=== PATIENT | female | born 1950 | race Caucasian/White ===

== ENCOUNTER 2023-06-27 15:46 | Inpatient (IN) | payer OTHER, MEDICAID, SELFPAY ==
[2023-06-26] VITALS (13 sets, daily range): BP systolic 133–182; BP diastolic 72–104; BMI 20.1; BMI 22.7
[2023-06-26 12:51] LABS: % Basophils 0.7 % (0-2); % Eosinophils 4.6 % (0-6); % Immature Granulocytes 0.7 % (0-0.5); % Lymphocytes 21.7 % (20.5-51.1); % Monocytes 10.7 % (1.7-9.3); % Neutrophils 61.6 % (42.2-75.2); Absolute Basophils 0.1 10^3/uL (0-0.2); Absolute Eosinophils 0.3 10^3/uL (0-0.7); Absolute Immature Granulocytes 0.1 10^3/uL (0-0.05); Absolute Lymphocytes 1.5 10^3/uL (1.2-3.4); Absolute Monocytes 0.7 10^3/uL (0.1-0.6); Absolute Neutrophils 4.1 10^3/uL (1.4-6.5); Hematocrit 45.4 % (37.0-47.0); Mean Corpuscular Hgb 30.3 pg (27.0-31.0); Mean Corpuscular Volume 91.7 fL (81.0-99.0); Nucleated Red Blood Cells % 0 %; Platelet Count 261 10^3/uL (130-400); Red Blood Cell Count 4.95 10^6/uL (4.20-5.40); Red Cell Dist. Width 14.6 % (11.5-14.5); White Blood Cell Count 6.7 10^3/uL (4.8-10.8)
[2023-06-26 13:02] LABS: ALT (SGPT) 21 U/L (0-35); AST (SGOT) 32 U/L (14-36); Albumin 4.2 g/dl (3.5-5.0); Alkaline Phosphatase 99 U/L (38-126); Blood Urea Nitrogen 11 mg/dl (7-17); Calcium 9.6 mg/dl (8.4-10.2); Carbon Dioxide 28 mmol/L (22-30); Chloride 104 mmol/L (98-107); Glucose 109 mg/dl (70-99); Potassium 3.8 mmol/L (3.5-5.1); Sodium 141 mmol/L (135-145); Total Bilirubin 0.9 mg/dl (0.2-1.3); eGFR > 60.00
[2023-06-26 13:03] LABS: INR 0.89; PT 12.3 Sec (11.4-14.6)
[2023-06-26 13:13] LABS: APTT 21.7 Sec (23.4-35.0)
--- NOTE | 2023-06-26 14:25 | ED.CVA ---
History of Present Illness
General
Chief Complaint: CVA/TIA Symptoms
Source: patient and family
Time Seen by Provider: 06/26/23 14:09
Onset of Stroke Symptoms
Onset of symptoms known: No
Time pt last seen normal is known: Yes
Date last time pt seen normal: 06/22/23
Travel History
Have you had any contact with someone who has COVID-19?: No
Do you have any symptoms of coronavirus? Fever > 100 degrees, chills, cough, shortness of breath, sore throat, loss of taste or smell, muscle aches, or headache?: No
History of Present Illness
History of Present Illness:
73-year-old female brought to the emergency room by her brother whom she lives with for left-sided weakness. Family has noticed that since the patient seems to have developed some difficulty using the left side. She seems to have some
lack of coordination of the left arm. They have observed a left facial droop. Patient is developmentally delayed. She lives with her mother all of her life until her mother . Now she resides with her brother. He describes her level
of cognition is that of a 7-year-old. She does not read. can mimic others writing.
Past History
Past History
ED Past Medical History: Psychiatric
ED Past Surgical History: Bowel resection
Social History
Tobacco: Non-smoker
Alcohol: None
Personal: Single
Living: with family
Phy Exam
Physical Exam
Physical Exam:
General: Awake, Alert, Oriented X3. No acute distress.
Vitals: unremarkable
Head: Atraumatic
Eyes: Pupils equal, EOMI
Throat: Airway intact, no exudates
Neck: Trachea midline
Lungs: Clear and equal b/l
Heart: Regular rate, no murmurs
Abd: Soft, Nontender, No pulsatile mass
Neuro: Question mild left facial droop, left upper extremity mildly weak 4/5, left upper extremity ataxia with [id number]. No apparent visual field deficit.
Skin: Warm, dry, no rash
Extremities: pulses equal b/l, no edema
Scores
NIH Stroke Score
Level of Consciousness: 0 - Alert
LOC Questions: 0-Answers both correctly
LOC Commands: 0-Performs both correctly
Best Horizontal Gaze: 0-Normal
Visual Azar: 0=Normal, no visual loss
Facial Palsy: 1=Minor paralysis
Motor - Right Arm: 0=No drift 10 seconds
Motor - Left Arm: 0=No drift 10 seconds
Motor - Right Le-No drift 5 seconds
Motor - Left Le-No drift 5 seconds
Limb Ataxia: 1-Present in one limb
Sensation: 0-Normal
Best Language: 0-No aphasia
Dysarthria: 1-Mild slurring
Extinction and Inattention: 0-No abnormality
Total Score:: 3
Course
Orders/Labs/Results
Orders:
Orders
06/26/23 12:22
Electrocardiogram (*1) Urgent
Reason for Study: TIA/Stroke
EKG- Treatment ONCE
06/26/23 12:38
Cardiovascular Evaluation Urgent
Comment: ADDON
Complete Blood Count/With Diff Urgent
Comprehensive Metabolic Panel Urgent
PT/INR [Prothrombin Time] Urgent
PTT Urgent
TSH Reflex To Free T4 Urgent
Comment: ADDON
Vitamin B12 Urgent
Comment: ADDON
06/26/23 14:25
CT Head W/o Iv Contrast Urgent
Comment:
Reason For Exam: left sided weakness
06/26/23 16:15
Aspirin Chewable [Low Strength Aspirin] 324 mg PO NOW STA
06/26/23 16:59
DIETARY CONSULT Routine
Reason for Consult: cough with swallowing/ vomiting
Speech Therapy Eval & Treat Urgent
06/26/23 17:24
Admit/Transfer Patient As Directed
Co-Sign Provider:
Level of Care: Observation services
Assign to:: Telemetry
Physician / Group: jim lopez
Diagnosis: left facial/arm/ leg weakness concern cva tia, Dysphagia
Reason for Telemetry: CVA/TIA
Date to Stop Telemetry: 06/29/23
Time to Stop Telemetry: 11:00
Reason for Hospitalization: left facial/arm/ leg weakness concern cva tia, Dysphagia
06/26/23 17:26
Code Status As Directed
Resuscitation Status: Full Code
06/26/23 17:28
Lidocaine 2.5%/Prilocaine 2.5% [Emla Cream] 1 gram TOPICAL NOW STA
INT (Intravenous Needle Therapy) As Directed
Comment: please place Iv as pt will need for Ativan tmr for MRI
06/26/23 17:29
Consult Neurology [NEUROLOGY CONSULT] Routine
Consulting Provider: Lona Harp
Was physician already notified: Yes
Reason for consult: left sided weakness x 4 days ,dysphagia
06/26/23 17:34
Aspirin 300 mg RECTAL NOW STA
06/26/23 17:42
HydrALAZINE [Apresoline] 10 mg IV Q6HPRN PRN
06/26/23 17:45
Lorazepam [Ativan] 0.5 mg PO ONCE PRN PRN
06/27/23 Breakfast
NPO
Allow oral meds: No
Allow clear liquids: No
06/27/23 08:00
Aspirin 300 mg RECTAL DAILY
06/29/23 11:00
DC Protocol for Telemetry ONCE
Abnormal Lab Results
06/26/23
12:38
RDW 14.6 H %
(11.5-14.5)
Abs Immat Gran (auto) 0.1 H 10^3/uL
(0-0.05)
Absolute Monos (auto) 0.7 H 10^3/uL
(0.1-0.6)
Immature Gran % 0.7 H %
(0-0.5)
Monocytes % 10.7 H %
(1.7-9.3)
APTT 21.7 L Sec
(23.4-35.0)
Glucose 109 H mg/dl
(70-99)
Total Cholesterol 248 H mg/dl
(50-199)
06/26/23 12:38
06/26/23 12:38
Vital Signs
Initial and Last Documented VS:
Initial Vital Signs
Temp Pulse Resp BP Pulse Ox
98.2 F 106 20 149/100 97
06/26/23 12:19 06/26/23 12:19 06/26/23 12:19 06/26/23 12:19 06/26/23 12:19
Last Documented Vital Signs
Temp Pulse Resp BP Pulse Ox
98.2 F 79 34 134/72 91
06/26/23 12:19 06/26/23 19:00 06/26/23 18:12 06/26/23 19:00 06/26/23 19:00
MDM/Problems Addressed
Differential Diagnosis Includes:
CVA, mass, subdural, electrode abnormality
MDM/Problems Addressed:
Patient has no acute findings on head CT. Labs are reassuring. Presentation is consistent with a lacunar infarct. Patient be hospitalized for further workup.
*Radiology
Radiology exam reviewed: radiology read reviewed
*Pulse Oximetry
Patient hypoxic: no
*EKG
Interpreted by ED Provider?: Yes
Heart Rate: 101
Rate: tachycardiac
Rhythm: sinus tachycardia
Interval: normal interval
QRS Pattern: normal QRS
Ischemia: no ischemia
*Math Instructor Interpretation
Rate: tachycardiac
Rhythm: sinus tachycardia
*Critical Care Note
Total Time (30-74mins, 75-104mins- exclusive of procedures): 32 min
comment:
Critical care statement: A total of 32 minutes of critical care time was provided for this patient. This includes management of unstable vital signs, evaluation of the patient at bedside, reviewing the patient's pertinent medical records, discussion
with consultants, review of old EKGs and review of pertinent medical records. This time with separate from time utilized to perform the aforementioned documented procedures
ED Attending Note
-
Portions of this chart may have been created with voice recognition software.� Occasional wrong word or��sound alike� substitutions may have occurred due to the inherent limitations of voice recognition software.
Discharge Plan
Departure
Patient Disposition: Admit
Date of Disposition: 06/26/23
Time of Disposition: 16:22
Admit to: Telemetry
Presentation/result/management discussed w/ accepting MD/DO: Hospitalist
Condition: Fair
Discharge Problem:
Acute CVA (cerebrovascular accident)
Interventions
Interventions:
*ED COVID-19 Vaccine History Last Done: 06/26/23 12:19
ED- Pulmonary Assessment Last Done: 06/26/23 14:36
ED- Neurological Assessment Last Done: 06/26/23 19:17
ED- Cardiac Assessment Last Done: 06/26/23 14:36
ED Swallowing Screen Last Done: 06/26/23 16:58
--- NOTE | 2023-06-26 16:22 | CON.NEURO ---
Consultation
Order
CC: ' I want to go home'
HPI: This is a 73-year-old RH woman who presented to [facility] on June 26, 2023 with left-sided weakness.Ms. Becker is unable to provide a history. According to patient's brother Larisa has had change in balance and facial
asymmetry starting 06/23/2023. She required assistance to ambulate yesterday in the evening after the family had dinner prompting this evaluation. No reports of headache, change in vision, history of seizures. Ms. Becker reportedly has baseline
cognitive impaired. She is usually able to ambulate unassisted, able to dress, bath and unable to read, write, use remote control or washing machine. She requires reminders with self hygeine.
ER VS: 149/100, 106, afebrile
EKG: NSR, �QTc Int : 448 ms
Labs: Glucose�109, normal WBCs, creatinine, Pl
CT head-moderate diffuse volume loss. Moderate leukoaraiosis, no acute infarcts.
EKG: NSR, �QTc Int : 448 ms
PDMP: No prescribed medications
PMH: Developmental impairment colon cancer, dysphagia, skin melanoma
PSH: Left colectomy, melanoma resection;
SH: lives with her brother
All: NKDA
ROS:limited due to encephalopathy, cooperation. Positive for chronic dysphagia, new change in balance
General: Well developed. In no acute distress.
Cardio: Regular rate and rhythm without murmur. Extremities are without cyanosis or edema.
Neuro:
Mental Status: Alert, oriented to name, birthday, person. Did not know her age, season. Follows simple requests. Nonfluent, no hemineglect.
Cranial Nerves: . Pupils are equally round and reactive to light. EOMs full. BTT bL. No ptosis. No nystagmus. Face symmetric. Preserved hearing AU. The palate elevated well. SCMs and traps 5/5. Tongue midline. No dysarthria.
Motor: Left hemiparesis(antigravity)
Reflexes: positive grasp on the R
Sensory: unable to assess due to poor attention
Coordination: No tremors or myoclonic movements.
Gait: deferred
Assessment and Plan:
I. Probable R lacunar syndrome
II. History of colon CA, melanoma;
III. Developmental encephalopathy, unclear etiology.
-Fall precautions;
-Dysphagia evaluation;
-Strict BP control;
-Carotid Doppler US;
-ASA 81mg QD;
-Brain MRI wo kena;
-LDL, HbA1C;
-TTE
-DVT prophylaxis
I personally reviewed all radiology and labs along with past medical records pertinent to current medical problems.
Thank you for allowing us to participate in the care of this patient. We will continue to follow. Please do not hesitate to contact us with any questions or concerns.
Subjective/Objective
Subjective Data
Date of Service: June 26, 2023
Objective Data
Vital Signs
Temp Pulse Resp BP Pulse Ox
36.8 C 89 23 155/102 93
06/26/23 12:19 06/26/23 14:30 06/26/23 14:30 06/26/23 14:25 06/26/23 14:30
Lab Results
06/26/23 12:38
06/26/23 12:38
PT 12.3 Sec (11.4-14.6) 06/26/23 12:38
INR 0.89 06/26/23 12:38
APTT 21.7 Sec (23.4-35.0) L 06/26/23 12:38
Sodium 141 mmol/L (135-145) 06/26/23 12:38
Potassium 3.8 mmol/L (3.5-5.1) 06/26/23 12:38
BUN 11 mg/dl (7-17) 06/26/23 12:38
Glucose 109 mg/dl (70-99) H 06/26/23 12:38
Calcium 9.6 mg/dl (8.4-10.2) 06/26/23 12:38
Patient Allergies
No Known Allergies Allergy (Verified 06/26/23 12:21)
Modified [place] Score (MRS)
-
MRS Score:
Medications
-
Home Medications
Medication Instructions Recorded
paroxetine HCl 10 mg tablet (Paxil) 10 mg PO HS 01/13/14
acetaminophen 300 mg-codeine 30 mg 2 tab PO Q4HPRN PRN moderate pain 01/21/14
tablet ##20
izknaxux-pczlspeka-hweghjkxx 3.5 4 drp otic (ear) TID ##1 04/11/14
mg-10,000 unit/mL-1 % ear
drops,susp
Vital Signs and Labs
-
Vital Signs and Labs:
Vital Signs
Temp Pulse Resp BP Pulse Ox
36.8 C 86 18 182/95 94
06/26/23 12:19 06/26/23 17:00 06/26/23 16:45 06/26/23 17:00 06/26/23 17:00
Lab Results
06/26/23 12:38
06/26/23 12:38
PT 12.3 Sec (11.4-14.6) 06/26/23 12:38
INR 0.89 06/26/23 12:38
APTT 21.7 Sec (23.4-35.0) L 06/26/23 12:38
Sodium 141 mmol/L (135-145) 06/26/23 12:38
Potassium 3.8 mmol/L (3.5-5.1) 06/26/23 12:38
BUN 11 mg/dl (7-17) 06/26/23 12:38
Glucose 109 mg/dl (70-99) H 06/26/23 12:38
Calcium 9.6 mg/dl (8.4-10.2) 06/26/23 12:38
Home Medications
-
Home Medications
acetaminophen 500 mg tablet (Tylenol Extra Strength) 1,000 mg PO DAILYPRN PRN mild pain 06/26/23
benzonatate 100 mg capsule 100 mg PO QPM 06/26/23
fluticasone propionate 50 mcg/actuation nasal spray,suspension 1 spray intranasal DAILY 06/26/23
ibuprofen 1 dose PO DAILYPRN PRN mild pain 06/26/23
paroxetine HCl 10 mg/5 mL oral suspension 10 mg PO DAILY 06/26/23
Medications
-
Medications:
Generic Name Dose Route Start Last Admin
Trade Name Freq PRN Reason Stop Dose Admin
Aspirin 300 mg 06/27/23 08:00
Aspirin 300 Mg Rectal Suppository RECTAL 07/25/23 07:59
DAILY JOAQUIM
Hydralazine HCl 10 mg 06/26/23 17:42
Hydralazine 20 Mg/Ml Vial IV 07/24/23 17:41
Q6HPRN PRN
sbp>165 ulisa>110
Lorazepam 0.5 mg 06/26/23 17:45
Lorazepam 0.5 Mg Tablet PO 07/24/23 17:44
ONCE PRN PRN
internet salesperson to MRI
--- NOTE | 2023-06-26 16:48 | HPS.HSE ---
Addendum entered and electronically signed by Дмитрий Brown MD 06/26/23 18:08:
I saw and examined the patient.
The RESIDENT ASSISTANT or PA's note was reviewed and I agree with the note.
Comment: 73 y/o F presenting with left sided weakness, facial droop first noticed 4 days ago but worse per family. Also left arm weakness. Also report of headache in past 2 days. Patient given ASA in ER but unable to safely swallow the pill. Brother
reports patient has cough with meals.
in ER, head CT negative. Patient admitted for CVA workup.
Plan: admit Tele. Stroke workup including MRI brain. Neuro eval. ASA rectally. PT/OT/ST. BP control. Rest of plan as outlined by GARRY Gamboa.
Physical Exam
General:�Comfortable and Conversant; No Pain or Fever
HEENT:�NormoCephalic, PERRLA, [place] Conjunctivae, No Ptosis and Other (Dry oral mucosa, no appreciated facial droop tongue is midline EOMs intact)
Respiratory:�Clear; No Wheezes, Rales or Rhonchi
Cardiac:�S1/S2 and Regular Rhythm; No Murmur, Rub, Gallop or Peripheral Edema
Breast:�Deferred by me
GI:�Soft, Non Tender, Non Distended, Normal Bowel Sounds and No Hepatosplenomegaly
Rectal:�Deferred by Provider
Genito-urinary:�Deferred by me
Musculoskeletal:�No Clubbing, No Cyanosis and No Edema
Skin:�Warm and Dry; No Rash or Jaundice
Neuro:�Awake, Alert, Oriented (To name, brother and cousin at bedside, review of systems), Nonfocal/grossly intact, Cranial Nerves Intact, No Sensory Deficits and Other (Subtle left arm weakness 4 out of 5, left leg subtle ataxia when holding up);
No Slurred Speech, Facial Droop or Tremors
Psych:�Calm (To easily anxious)
Original Note:
Family Physician
-
Family Physician: Wes Benitez
Chief Complaint
-
Left face left arm, left leg weakness x 4 days
History of Present Illness
73-year-old female brought to the ER by her brother whom she lives with, planing of left-sided weakness with left facial droop noticed 4 days ago but seem to be worse today. Her brother states she did complain of a headache the past 2 days but
typically always does. She was very anxious coming to the hospital as she gets worried about getting stuck with a needle. She was hypertensive on arrival but blood pressure did come down to 146/97 after calming down. I do not appreciate any
facial droop. She has subtle left arm weakness. She did fail her bedside swallow and chewing aspirin which she spit up. Her brother states for the past several months she has had a cough every time she eats. He reports the Tessalon Perles were
not helping. I advised him she will require a speech and swallow evaluation as she failed her swallow test today at bedside. Patient is oriented to name her brother's name and her cousin Seda at bedside she is able to give some review of
systems. She reports some left arm weakness and some left leg weakness with walking she denies current headache, chest pain, palpitations, shortness of breath, abdominal pain, nausea, vomiting, diarrhea, urinary symptoms. The patient has history
of developmental delay. she lived with her mother until her mother in 2018.
PMH developmental delay with age equivalent of 7 years old per brother cognitively, anxiety, HLD, seasonal allergies, colon cancer with hemicolectomy 2015
Medical History
Past Medical History
Past Medical History: Reports Other
Additional Past Medical History:
anxiety, HLD, seasonal allergies, colon cancer with hemicolectomy
Past Surgical History: Reports Other
Additional Past Surgical History:
colon cancer with hemicolectomy 2015
Social History
Tobacco: Non-smoker
Alcohol: None
Drug: None
Personal: Single
Living: With Family (Brother Jose who goes by Gamaliel who is her POA)
Employment: Disabled
Family History
Family History: Not pertinent
Allergies / Home Medications
Allergies reflects when Allergies were last updated in [employer].
Home Medications with original date entered in [employer]
Allergy/Medication List:
Allergies
Allergy/AdvReac Type Severity Reaction Status Date / Time
No Known Allergies Allergy Verified 06/26/23 12:21
Home Medications
acetaminophen 500 mg tablet (Tylenol Extra Strength) 1,000 mg PO DAILYPRN PRN mild pain 06/26/23
benzonatate 100 mg capsule 100 mg PO QPM 06/26/23
fluticasone propionate 50 mcg/actuation nasal spray,suspension 1 spray intranasal DAILY 06/26/23
ibuprofen 1 dose PO DAILYPRN PRN mild pain 06/26/23
paroxetine HCl 10 mg/5 mL oral suspension 10 mg PO DAILY 06/26/23
Review of Systems
-
History Source: Patient and Family (Brother Jose and cousin Seda at bedside)
Constitutional: Denies Fever or Chills
EENT: Reports Other (Reported left-sided facial droop); Denies Sore Throat or Runny Nose
Respiratory: Reports Cough (After eating and drinking)
Cardiac: Denies Chest Pain, Diaphoresis, Palpitations or Syncope
Abdomen/GI: Denies Abdominal Pain, Nausea, Vomiting, Diarrhea, Constipated, Bloody Stools or Black Stools
: Denies Dysuria, Frequency, Flank Pain or Incontinence
Musculoskeletal: Denies Joint Pain or Edema
Skin: Denies Itching or Rash
Neurological: Reports Dizzy, Headache and Weakness (Left arm left leg)
Endocrine: Reports No Symptoms
Hematologic/Lymphatic: Reports No Symptoms
Psych: Reports Calm
Physical Exam
Vital Signs
Vital Signs
Temp Pulse Resp BP Pulse Ox
98.2 F 89 23 155/102 93
06/26/23 12:19 06/26/23 14:30 06/26/23 14:30 06/26/23 14:25 06/26/23 14:30
Physical Exam
General: Comfortable and Conversant; No Pain or Fever
HEENT: NormoCephalic, PERRLA, [place] Conjunctivae, No Ptosis and Other (Dry oral mucosa, no appreciated facial droop tongue is midline EOMs intact)
Respiratory: Clear; No Wheezes, Rales or Rhonchi
Cardiac: S1/S2 and Regular Rhythm; No Murmur, Rub, Gallop or Peripheral Edema
Breast: Deferred by me
GI: Soft, Non Tender, Non Distended, Normal Bowel Sounds and No Hepatosplenomegaly
Rectal: Deferred by Provider
Genito-urinary: Deferred by me
Musculoskeletal: No Clubbing, No Cyanosis and No Edema
Skin: Warm and Dry; No Rash or Jaundice
Neuro: Awake, Alert, Oriented (To name, brother and cousin at bedside, review of systems), Nonfocal/grossly intact, Cranial Nerves Intact, No Sensory Deficits and Other (Subtle left arm weakness 4 out of 5, left leg subtle ataxia when holding up);
No Slurred Speech, Facial Droop or Tremors
Psych: Calm (To easily anxious)
Laboratory Results
-
06/26/23 12:38
06/26/23 12:38
Laboratory Results
PT 12.3 Sec (11.4-14.6) 06/26/23 12:38
INR 0.89 06/26/23 12:38
APTT 21.7 Sec (23.4-35.0) L 06/26/23 12:38
Total Bilirubin 0.9 mg/dl (0.2-1.3) 06/26/23 12:38
AST 32 U/L (14-36) 06/26/23 12:38
ALT 21 U/L (0-35) 06/26/23 12:38
Alkaline Phosphatase 99 U/L (38-126) 06/26/23 12:38
Impression/Plan
-
Impression/plan:
Observation telemetry
#Left facial droop left arm weakness concern for CVA/TIA
Symptoms x 4 days per family
-Consult neurology
-Neurochecks every 4 hours
-Check lipid profile, HgbA1c
-MRI brain
-NPO
-Aspirin rectal as patient failed swallow eval and coughed up chewable aspirin
CT head: No acute intracranial process. Moderate diffuse volume loss
#Acute on chronic dysphagia
failed bedside swallow coughing when try mary chew aspirin, brother states coughs every time she eats for several months
-Speech swallow eval
HTN to be established likely 2/2 to Anxiety
155/102 > 146/97 after calming down
IV hydralazine prn
-Goal normotension
EKG: Sinus tachycardia 101 bpm, QTc 448 MS no significant change from January 2014
#History developmental delay since
-Reports per brother age equivalent is 7 years old
#Anxiety
-HOLD Paxil as failed swallow
#Hx colon cancer with hemicolectomy 2015
-Patient and mother opted not to do radiation or chemo at that time
#Seasonal allergies
-Continue Flonase
DVT prophylaxis
SCDs
Full code per brother LAIMaurisio Jose who goes by Gamaliel at bedside he is to be called with all medical decisions
[2023-06-26] MEDS: LOW STRENGTH ASPIRIN 324 MG PO (16:53)
--- NOTE | 2023-06-26 17:33 | EDRN ---
Pt swallowed a few sips of water without difficulty, no garbled speech or wet cough. Pt was then administered 4 baby aspirin to chew. Pt began chewing and swallowed. about 4-5 minutes later Pt began vomiting up the meds and water that was given.
Made NPO by Brinda HEART who was at the bedside and witnessed both swallow evals.
[2023-06-26] MEDS: ASPIRIN 300 MG RECTAL (18:14)
[2023-06-26] MEDS: EMLA CREAM 1 GRAM TOPICAL (18:14)
[2023-06-26] MEDS: APRESOLINE 10 MG IV (18:23)
[2023-06-26 19:16] LABS: HDL Cholesterol 79 mg/dl; LDL Cholesterol, Calculated 149 mg/dl; Total Cholesterol 248 mg/dl (50-199); Triglyceride 103 mg/dl (10-149); Very Low Density Lipoprotein 20 mg/dl (0-30)
[2023-06-26 19:44] LABS: TSH Reflex To Free T4 1.65 uIU/ml (0.47-4.68)
[2023-06-26 21:31] LABS: Vitamin B12 225 pg/ml (239-931)
--- NOTE | 2023-06-26 23:00 | PTCARENOTE ---
Pt arrived to unit from ED with luis Stack and ambulated with x1 assist from stretcher to bed. NIH performed and pt scored a 4 for left facial droop with smile, left arm ataxia and unable to state month and age. Pt oriented to room, call becker
within reach. VS on admission stable. Stroke packet provided to luis Stack d/t pt being illiterate. Will continue to monitor.
[2023-06-27 03:10] VITALS: BP 156/83
--- NOTE | 2023-06-27 05:01 | W.PN.HOSP.TC ---
Today's Communication/Plan
-
trial puree diet meds crushed
PMR eval possible Acute Rehab
cont asa rectal, will switch to oral if tolerating oral intake
will start statin if tolerating oral intake.
Assessment / Plan
Assessment / Plan
Physical Exam
General:�No acute distress
HEENT:�NormoCephalic, PERRLA, [place] Conjunctivae, No Ptosis
Respiratory:�Clear; No Wheezes, Rales or Rhonchi
Cardiac:�S1/S2 and Regular Rhythm; No Murmur, Rub, Gallop or Peripheral Edema
GI:�Soft, Non Tender, Non Distended, Normal Bowel Sounds and No Hepatosplenomegaly
Musculoskeletal:�No Clubbing, No Cyanosis and No Edema
Skin:�Warm and Dry; No Rash or Jaundice
Neuro:�Awake, Alert, left arm leg weakness 4/5
Psych:�Calm
HPI: 73F brought to the ER by her brother who she lives with, p/w left-sided weakness left facial droop noticed 4 days ago.� Brother reported she c/o headache past 2 days.� Hypertensive on arrival but blood pressure did improve after calming down.�
Failed bedside swallow and chewing aspirin which she spat up.� Brother reported for the past several months she has had a cough every time she eats.� The patient has history of developmental delay. She lived with her mother until she
2018.
PMH developmental delay with age equivalent of 7 years old per brother cognitively, anxiety, HLD, seasonal allergies, colon cancer with hemicolectomy 2016.
#Left facial droop left arm weakness concern for CVA/TIA
Symptoms x 4 days per family
-Consult neurology appreciated
-Neurochecks every 4 hours
-Check lipid profile, HgbA1c
-CT head:�No acute intracranial process.� Moderate diffuse volume loss
-MRI brain appreciated Nonhemorrhagic acute/subacute right pontine infarct.
-Aspirin rectal
-Carotid US appreciated no significant stenosis
-ECHO appreciated preserved EF no acute valve abn's
-PT/OT appreciated Acute Rehab, PMR eval pending
Prediabetes
HgA1c 5.8
Hyperlipidemia
LDL goal <70
to start statin when tolerating oral intake
�#Acute on chronic dysphagia
�failed bedside swallow coughing when try mary chew aspirin, brother states coughs every time she eats for several months
-Speech swallow eval appreciated with VSE high risk aspiration
(1) Trial diet of IDDSI Level 4 Solids (Puree) and thin liquids
(2) Aspiration precautions: Chin tuck with puree, single cup sips of liquids only, slow rate, sit upright
(3) Meds crushed in puree as able
HTN likely 2/2 to Anxiety
improved when calm
IV hydralazine prn
-Goal normotension
EKG: Sinus tachycardia 101 bpm, QTc 448 MS no significant change from January 2014
#History developmental delay since
-brother reports age equivalent 7 years old
#Anxiety
-Paxil resumed
#Hx colon cancer with hemicolectomy 2015
-Patient and mother opted not to do radiation or chemo at that time
#Seasonal allergies
-Continue Flonase
DVT prophylaxis
SCDs
discussed with patient's brother Jose and cousin Seda at bedside
I spent a total of 50 minutes with the patient or on the floor. More than 50% of this time involved counseling and coordination of care.
Anticipated Discharge: 24 - 48 hours
Subjective/Interval History
-
Date of Service: June 27, 2023
No acute distress appears comfortable at this time.
Objective Data
-
Labs:
Laboratory Results
06/27/23
06:00
WBC Pending
Hgb Pending
Hct Pending
Plt Count Pending
Sodium Pending
Potassium Pending
Chloride Pending
Carbon Dioxide Pending
BUN Pending
Creatinine Pending
Glucose Pending
Calcium Pending
Vital Signs:
Vital Signs
Temp Pulse Resp BP Pulse Ox
98.1 F 73 16 156/83 95
06/27/23 03:10 06/27/23 03:10 06/27/23 03:10 06/27/23 03:10 06/27/23 03:10
--- NOTE | 2023-06-27 07:22 | PTCARENOTE ---
Pt with PRN order for PO Ativan 0.5mg before MRI but pt is NPO. House LAMP CLEANER Maria Teresa Moreno notified, order changed to PRN IV Ativan 0.5mg before MRI. Will pass along to day shift.
[2023-06-27] MEDS: ASPIRIN 300 MG RECTAL (07:36)
[2023-06-27 07:37] LABS: % Basophils 0.7 % (0-2); % Eosinophils 4.4 % (0-6); % Immature Granulocytes 0.4 % (0-0.5); % Lymphocytes 22.9 % (20.5-51.1); % Monocytes 13.7 % (1.7-9.3); % Neutrophils 57.9 % (42.2-75.2); Absolute Basophils 0.1 10^3/uL (0-0.2); Absolute Eosinophils 0.3 10^3/uL (0-0.7); Absolute Lymphocytes 1.6 10^3/uL (1.2-3.4); Hemoglobin 14.9 g/dL (12.0-16.0); Mean Corp Hgb Conc. 33.9 g/dL (33.0-37.0); Mean Corpuscular Hgb 30.8 pg (27.0-31.0); Mean Corpuscular Volume 91.1 fL (81.0-99.0); Mean Platelet Volume 10.6 fL (7.4-10.4); Nucleated Red Blood Cells % 0 %; Platelet Count 256 10^3/uL (130-400); Red Blood Cell Count 4.83 10^6/uL (4.20-5.40); Red Cell Dist. Width 14.4 % (11.5-14.5)
[2023-06-27 07:47] LABS: Blood Urea Nitrogen 8 mg/dl (7-17); Calcium 9.1 mg/dl (8.4-10.2); Carbon Dioxide 24 mmol/L (22-30); Chloride 109 mmol/L (98-107); Estimated Creatinine Clearance 64 ml/min; Glucose 94 mg/dl (70-99); HDL Cholesterol 74 mg/dl; LDL Cholesterol, Calculated 143 mg/dl; Sodium 137 mmol/L (135-145); Total Cholesterol 230 mg/dl (50-199); Triglyceride 65 mg/dl (10-149); Very Low Density Lipoprotein 13 mg/dl (0-30); eGFR > 60.00
--- NOTE | 2023-06-27 10:30 | PTOTSP ---
SPEECH THERAPY SWALLOW AND SPEECH/LANGUAGE/COGNITIVE COMMUNICATION EVALUATION:
Clinical signs of oropharyngeal dysphagia, likely acutely related to CVA and chronic related to pre-existing dysphagia secondary to developmental delay. Patient at high risk for aspiration and related complications given confusion/cognitive
impairments. Recommend Videofluoroscopic Swallowing Study to further assess patient's swallow physiology. Recommend patient to be NPO except for necessary medications crushed in puree until VSE; temporary alternate means for all nutrition/hydration.
Speech therapy to follow, provide further recommendations following VSE results, provide continued education regarding aspiration risks and precautions, and provide continued diagnostic treatment as appropriate.
Patient exhibits mild expressive/receptive language impairments and moderate cognitive-communication impairments characterized by: mild anomia, reduced STM, delayed processing speed, reduced attention, reduced safety awareness/insight, reduced
problem solving skills, reduced orientation; likely acutely related to CVA and exacerbating chronic cognitive impairments. Patient with developmental delay at baseline, which is a contributing factor to cognitive communication impairments. Unclear
what is baseline level of functioning at this time. Recommend trial speech therapy services to facilitate improving cognitive communication and receptive/expressive language skills.
RECOMMEND:
1) Videofluoroscopic Swallowing Study
2) NPO except for necessary medications crushed in puree until VSE
3) temporary alternate means for all nutrition/hydration
4) Speech therapy to follow, provide further recommendations following VSE results, provide continued education regarding aspiration risks and precautions, and provide continued diagnostic treatment as appropriate
5) trial speech therapy services to facilitate improving cognitive communication and receptive/expressive language skills
[2023-06-27 11:00] VITALS: BP 127/74
[2023-06-27 11:14] LABS: Glycohemoglobin (HgbA1c) 5.8 % (4.0-5.6)
[2023-06-27] MEDS: ATIVAN 1 MG PO (11:23)
--- NOTE | 2023-06-27 12:51 | PTCARENOTE ---
Patient is awake and alert, seen by speech therapist. Awaiting
Video swallow. In MRI at present.
--- NOTE | 2023-06-27 13:30 | PTOTSP ---
Speech Language Pathology
VIDEOFLUOROSCOPIC SWALLOWING EXAMINATION (VSE) completed. Overall, pt with mild oral and mod-severe pharyngeal dysphagia. Ineffective aspiration of thin liquids via straw and puree noted. Chin tuck with puree eliminated aspiration. Pt is at a
high risk for aspiration with P.O. diet. Can consider diet with strategies. Discussed with MD and will trial diet.
Recommend:
(1) Trial diet of IDDSI Level 4 Solids (Puree) and thin liquids
(2) Aspiration precautions: Chin tuck with puree, single cup sips of liquids only, slow rate, sit upright
(3) Meds crushed in puree as able
(4) LINING [employer]S SEWER to continue to follow
--- NOTE | 2023-06-27 13:56 | W.PN.NEURO.1 ---
Addendum entered and electronically signed by Eliseo Khalil MD 06/27/23 14:45:
Studies reviewed.
I have personally examined the patient. I reviewed and agree with the TRAY SERVER's Note.
My addenda:
Awake, alert, interactive. No acute distress.
Speech intact.
Follows 2-step requests w/o difficulty. No tremor.
Extra-ocular movements grossly intact.
Facial movements full and symmetric. Hearing intact to normal conversational volume.
Normal UE movements bilaterally.
Neck: full ROM.
Chest: no dyspnea
Heart: no JVD
Ext: (-) Clubbing, (-) Cyanosis, (-) Edema
IMPRESSIONS/RECOMMENDATIONS:
Abrupt onset of the patient with prior intellectual disability and new left-sided weakness
MRI brain is consistent with an acute ischemic lesion involving most of the medial right brent
Continue aspirin NE until able to take by mouth
Eventual initiation of atorvastatin 40 mg daily
Rehabilitation evaluations
Consider antidepression medication
Provide by mouth diet by Dobbhoff tube until cleared for regular by mouth intake
Will continue to follow patient.
Original Note:
Documented by User: Syeda Vincent NP 06/27/23 14:32
Today's Communication / Plan
-
.
Neuro Assessment/Plan
Assessment
This is a 73-year-old right-handed female who presented to on 06/26/23 with report of left-sided weakness. Ms. Becker is developmentally delayed/tearful/unable to provide a history.� According to patient's brother Larisa had change in balance and
left facial asymmetry starting on 06/23/2023.� She required assistance to ambulate yesterday in the evening after the family had dinner prompting this evaluation.� No reports of headache, change in vision, history of seizures.� Ms. Becker reportedly
has baseline cognitive impaired. She is usually able to ambulate unassisted, able to dress, bath and unable to read, write, use remote control or washing machine. She requires reminders with self hygiene.
ER VS: 149/100, 106, afebrile
EKG: NSR, �QTc Int : 448 ms
Labs: Glucose�109, normal WBCs, creatinine, Pl
CT head-moderate diffuse volume loss. Moderate leukoaraiosis, no acute infarcts.
EKG: NSR, �QTc Int : 448 ms
PDMP: No prescribed medications
MRI Brain 06/27/23: Nonhemorrhagic acute/subacute right pontine infarct. No evidence for intracranial metastasis.
She was outside of the time window for IV TNK/IAT as symptom onset was 72 hours before presentation.
I. Acute/subacute right pontine ischemic infarct as demonstrated on MRI brain imaging. Unclear etiology.
II. History of colon CA, melanoma. No evidence of brain metastases on MRI brain imaging.
III. Developmental encephalopathy, unclear etiology.
Plan
-Continue rectal aspirin daily as patient is strictly NPO.
-Goal normotension as symptom onset was greater than 24 hours ago.
-MRA COW ordered/pending as this is a posterior circulation stroke.
-TTE ordered/pending.
-Carotid ultrasound obtained/results pending.
-Monitor on telemetry, patient will likely need extended outpatient cardiac monitoring.
-LDL goal <70. LDL is 143. Once cleared for a diet, initiate atorvastatin 40mg daily.
-Goal normoglycemia, hbA1c is 5.8.
-NIHSS and neurological checks per unit guidelines.
-Provide patient/family with stroke education packet.
-B12 level is low at 225. Once cleared for a diet, initiate cyanocobalamin 1000mcg daily.
-DVT prophylaxis.
-PT/OT/ST evaluations.
Subjective/Objective
Subjective Data
Date of Service: June 27, 2023
No acute events overnight. Patient is tearful. She is unable to express the reason she is here, only that she wants to go home. She denies any headache, dizziness, vision changes, speech/swallow difficulty, numbness, chest pain, palpitations, and
shortness of breath.
Objective Data
Vital Signs
Temp Pulse Resp BP Pulse Ox
98.1 F 84 18 127/74 94
06/27/23 11:00 06/27/23 11:00 06/27/23 11:00 06/27/23 11:00 06/27/23 11:00
Lab Results
06/27/23 06:49
06/27/23 06:49
PT 12.3 Sec (11.4-14.6) 06/26/23 12:38
INR 0.89 06/26/23 12:38
APTT 21.7 Sec (23.4-35.0) L 06/26/23 12:38
Sodium 137 mmol/L (135-145) 06/27/23 06:49
Potassium 4.0 mmol/L (3.5-5.1) 06/27/23 06:49
BUN 8 mg/dl (7-17) 06/27/23 06:49
Glucose 94 mg/dl (70-99) 06/27/23 06:49
Calcium 9.1 mg/dl (8.4-10.2) 06/27/23 06:49
LDL Cholesterol, Calc 143 mg/dl 06/27/23 06:49
Vitamin B12 Cancelled 06/26/23 18:30
Patient Allergies
No Known Allergies Allergy (Verified 06/26/23 12:21)
LDL Level: >70, statin ordered
Review of Systems
-
History Source: Patient
EENT: Negative Blurry Vision, Decreased Vision or Swallowing Difficulty
Respiratory: Negative Cough or Trouble Breathing
Cardiac: Negative Chest Pain or Palpitations
Abdomen/GI: Negative Nausea
Genitourinary: Negative Difficulty Voiding
Neuro: Weakness; Negative Dizzy, Headache, Numbness, Ataxia, Tremors or Speech Problem
Physical Exam
-
General: Well Developed, Well Nourished and Appears in Distress (tearful/anxious)
Eyes: No Ptosis and PERRLA
HEENT: Normocephalic and Atraumatic
Neck: Full Range of Motion
Respiratory: No Dyspnea
GI: Non-distended
Extremities: No Clubbing, No Cyanosis and No Edema
Psych: Confused and Anxious
Extended Neurological Exam
Mood & Affect: Anxious
Attention Span & Concentration: Awake, Alert and Interactive
Memory: Reduced (oriented to self and place) and Incomplete Historian
Tremor: Hand Tremor Absent and Head Tremor Absent
Involuntary Movement: None
Speech: Mildly Reduced Output
Cranial Nerve II: Left Eye: Pupillary Reactivity Unremarkable, Pupillary Size Unremarkable and Visual Azar Intact
Cranial Nerve II: Right Eye: Pupillary Reactivity Unremarkable, Pupillary Size Unremarkable and Visual Azar Intact
Cranial Nerves III, IV, : Extraocular Movement: Extraocular Movement Full in all Directions
Cranial Nerve V: Facial Sensation: Intact to Light Touch
Cranial Nerve VII: Facial Symmetry: Reduced (very slight left facial droop)
Cranial Nerve VIII: Hearing: Unremarkable Hearing to Normal Conversational Volume
Cranial Nerves IX, X: Palate Movement: Palate Elevation Symmetric
Cranial Nerve XII: Tongue Protusion: Midline
Muscle Strength, Overall: Reduced on Left (LUE 4-/5, LLE 4+/5)
Pronator Drift: Drift in Left Upper Extremity and Drift in Left Lower Extremity
Touch Sensation: Double Simultaneous Stimulation Unremarkable
Coordination: Negative [id number] Testing Unremarkable (LUE ataxia)
Modified Freeborn Score (MRS)
-
MRS Score:
Data Reviewed
-
CT Head: Report Reviewed and Image Reviewed
Carotid Ultrasound: Ordered and Pending
Labs: Report Reviewed
Lipid Profile: Report Reviewed
HgbA1C: Report Reviewed
Reviewed with: Physician and Patient
Medications
-
Active Medications
Generic Name Dose Route Start Last Admin
Trade Name Freq PRN Reason Stop Dose Admin
Acetaminophen 650 mg 06/26/23 22:12
Acetaminophen 650 Mg Rectal Suppository RECTAL 07/24/23 22:11
Q4HPRN PRN
JACOBSEN, mild pain, or temp >100.4F
Aspirin 300 mg 06/27/23 08:00 06/27/23 07:36
Aspirin 300 Mg Rectal Suppository RECTAL 07/25/23 07:59 300 mg
DAILY JOAQUIM Administration
Hydralazine HCl 10 mg 06/26/23 17:42 06/26/23 18:23
Hydralazine 20 Mg/Ml Vial IV 07/24/23 17:41 10 mg
Q6HPRN PRN Administration
sbp>165 luisa>110
Lorazepam 0.5 mg 06/27/23 11:19
Lorazepam 2 Mg/Ml Vial IV 07/25/23 11:18
ONCE PRN
irrigation flume layer to MRI
Sodium Chloride 0 flush 06/26/23 23:00
Sodium Chloride 0.9% (Flush) Syringe IV 07/24/23 22:59
PER PROTOCOL JOAQUIM
Home Medications
Medication Instructions Recorded
acetaminophen 500 mg tablet 1,000 mg PO DAILYPRN PRN mild pain 06/26/23
(Tylenol Extra Strength)
benzonatate 100 mg capsule 100 mg PO QPM Cough 06/26/23
fluticasone propionate 50 1 spray intranasal DAILY Allergies 06/26/23
mcg/actuation nasal
spray,suspension
ibuprofen 1 dose PO DAILYPRN PRN mild pain 06/26/23
paroxetine HCl 10 mg/5 mL oral 10 mg PO DAILY Mental 06/26/23
suspension Health/Anxiety
NIH Stroke Score
Subsequent NIH Scale
Date of Subsequent NIH Scale: 06/27/23
Time of Subsequent NIH Scale: 09:30
NIH Stroke Score
Level of Consciousness: 0 - Alert
LOC Questions: 1-Answers one correctly
LOC Commands: 0-Performs both correctly
Best Horizontal Gaze: 0-Normal
Visual Azar: 0=Normal, no visual loss
Facial Palsy: 1=Minor paralysis (very slight left facial )
Motor - Right Arm: 0=No drift 10 seconds
Motor - Left Arm: 1=Drift < 10 seconds
Motor - Right Le-No drift 5 seconds
Motor - Left Le-Drift < 5 seconds
Limb Ataxia: 1-Present in one limb
Sensation: 0-Normal
Best Language: 1-Mild aphasia
Dysarthria: 0-Normal
Extinction and Inattention: 0-No abnormality
Total Score:: 6

Documented by User: Eliseo Khalil MD 06/27/23 14:34
NIH Stroke Score
NIH Stroke Score
Total Score:: 6
--- NOTE | 2023-06-27 14:53 | CM ---
Patient seen bedside with brother.
IA completed.
Patient was independent with ambulation prior to admission.
Patient developmentally delayed.
Patient lives in 3 story home, patient is on the second floor.
No assistive devices prior to admission.
Per brother, she lived with their mother but has been living with brother since she passed.
Patient with recent weakness and brought to the hospital.
MRI + for CVA.
Per brother he and his spouse work and they are unable to lift her.
Brother has been working with [facility] for private caregivers and would like additional resources.
Plan: acute vs skilled rehab await PT/OT/ST [place].
patient will require [facility] insurance auth.
--- NOTE | 2023-06-27 17:02 | CON.MD ---
Documented by User: Harper Faye PA-C 06/28/23 17:58
Consultation - Medical
-
Referring Provider: Amado Light
Chief Complaint: CVA
History of Present Illness: Patient is a 73 year-old female with PMH of (developmental delay with age equivalent of 7 years old cognitively, anxiety, hyperlipidemia, seasonal allergies, colon cancer with hemicolectomy 2016) brought to the ER on 06/26
by her brother whom she lives with for left-sided weakness.� Family has noticed that since the patient seems to have developed some difficulty using the left side.� She seems to have some lack of coordination of the left arm.� They have
observed a left facial droop.� Patient is developmentally delayed.� She lives with her mother all of her life until her mother .� Now she resides with her brother.� He describes her level of cognition is that of a 7-year-old.� She does
not read.� can mimic others writing. Failed bedside swallow and chewing aspirin which she spat up.� Brother reported for the past several months she has had a cough every time she eats.� CT scan of head without acute intracranial process. Moderate
diffuse volume loss. Moderate leukoaraiosis. MRI of the head shows nonhemorrhagic acute/subacute right pontine infarct. No evidence of intracranial metastasis. Had a video swallow test on 06/27/2023 with recommendation of trial diet level 4
solids (pur�e) and thin liquids. Switched now to po intake
MRA Head - 06/29/2023 - Decreased opacification and subsequent cut off of the right posterior cerebral artery at the P2/P3 junction, with poor peripheral collateralization. The basilar artery is intact.
Carotid ultrasound, with less than 50% stenosis bilaterally.
Past Medical History: developmental delay with age equivalent of 7 years old per brother cognitively, anxiety, HLD, seasonal allergies, colon cancer with hemicolectomy 2016.
Procedure History: Left colectomy, melanoma resection;
Family History: Strong family history of CVA, [place], heart disease, cancer
Social History:
Functional Level Premorbidly: Independent with all activities
Functional Level Currently: Patient ambulated 40 feet without device and minimal assistance, mild unsteadiness at times with narrow base of support and occasional balance checks during gait. Easily distracted, very upset, likely impacting her
Safety with ambulation, sit to stand transfer and stand to sit transfer�supervision, Can sit without support for 5 minutes, can stand with moderate support of 1 person, cannot stand without support, cannot stand on none paretic leg
Tobacco: Non-smoker
Alcohol: None
Drug use: None
Lives with: Family
24-hour assistance available: yes
Number of floors: 1
# steps to enter: 0
# steps to second floor: 0
Potential First floor set up:yes
Driving: No
Occupation: Home
�
Allergies:
Allergy/AdvReac Type Severity Reaction Status Date / Time
No Known Allergies Allergy Verified 06/26/23 12:21
Review of Systems:
Constitutional: (x) Normal _
Eye: (x) Normal _
Ear/Nose/Throat: (x) Normal _
Respiratory: (x) Normal _
Cardiovascular: (x) Normal _
Gastrointestinal: (x) coughing with eating, swallowing
Genitourinary: (x) Normal _
Musculoskeletal: (x) Normal _
Integumentary: (x) Normal _
Neurologic: (x) CVA
Psychiatric: (x) depression, developed mentally delayed
Endocrine: (x) Normal _
Hematologic/Lymphatic: (x) Normal _
Allergic/Immunologic: (x) Normal _
Medications:
Active Current Visit Medication List
Category Date Time Status
Acetaminophen [Tylenol/Feverall] Med 06/26/23 22:12 Active
650 mg RECTAL Q4HPRN PRN
Aspirin Chewable [Low Strength Aspirin] Med 06/29/23 08:00 Active
81 mg PO DAILY
Atorvastatin [Lipitor] Med 06/28/23 18:00 Active
40 mg PO QPM
Clopidogrel Bisulfate [Plavix] Med 06/28/23 10:00 Active
75 mg PO DAILY
Cyanocobalamin [Vitamin B-12] Med 06/28/23 08:00 Active
1,000 mcg PO DAILY
Flush (0.9% Sodium Chloride) [Flush (Nss)] Med 06/26/23 23:00 Active
See Dose Instructions IV PER PROTOCOL
HydrALAZINE [Apresoline] Med 06/26/23 17:42 Active
10 mg IV Q6HPRN PRN
Lorazepam [Ativan] Med 06/27/23 11:19 Active
0.5 mg IV ONCE PRN
Paroxetine [Paxil] Med 06/28/23 08:00 Active
10 mg PO DAILY
Active Current Visit Medication List
Vitals:
Temp Pulse Resp BP Pulse Ox
97.5 F 73 16 137/80 93
06/28/23 07:45 06/28/23 07:45 06/28/23 07:45 06/28/23 07:45 06/28/23 07:45
Height 5 ft 1 in
Actual Weight 54.522 kg
Body Mass Index (BMI) 22.7
Physical Exam:
General Appearance/Observation: Well-developed, well-nourished individual in no apparent distress.
Pain/Comfort Assessment: Denies
Mood/Affect: Appropriate
Integumentary/Operative Site:
�� Pressure Ulcer Evaluation: absent over heels.
��
�� Other Type of Wound: absent
��
Eyes: Conjunctiva/Lids: normal ��� Pupils: pupils equal round and reactive to light and Accommodation
Ears/Nose/Throat: oral mucosa moist,� throat clear.������������ Lips/Teeth/Gums: normal, no teeth
Neck: No muscle spasm or tenderness
Cardiovascular: Heart: regular, no murmur
Pulses: dorsalis pedis 2+ bilaterally
Respiratory: Respiratory Effort/Chest Expansion: normal ������ Auscultation: Clear to auscultation bilaterally
Gastrointestinal: abdomen not tender, distension, normal abdominal bowel sounds
Genitourinary: No Feng
Extremities: Edema: None Cyanosis: None Trophic changes: None
Neurology Exam:
Orientation: Alert, Oriented to self, Place
Memory: Impaired
Higher cortical function
Repetition: Impaired
Comprehension: Impaired some. Have to repeat and cue at times
Two step command: Impaired, better with one-step
Naming: Intact
Cranial Nerves:
�� CNII: Pupillary light reflex: Intact��� Visual Field: Intact
�� CN III, IV, : Extraocular muscles: distracted and keeps on turning head with eye movements, but grossly intact
�� CN V: Facial Sensation at Forehead: Intact, Maxilla: Intact, Mandible: Intact
�� CN VII: Facial movement: some left drooping
�� CN VIII: Hearing: Normal
�� CN IX/X: Speech & swallow:low tone, Position of Uvula: Midline
�� CN XI: Shoulder shrug: left weakness
�� CN XII: Tongue protrusion: deviated
Sensory:
�� Light touch: Intact in bilateral upper and lower extremities
��
Reflexes:
�� Biceps: 3+ bilaterally
�� Brachioradialis: 3+ bilaterally
�� Triceps: 3+ bilaterally
�� Patellar: 3+ bilaterally
�� Achilles: 2+ bilaterally
�� Babinski: Deferred. Patient refused
�� Clonus: deferred
�� Natalie: positive bilaterally
Cerebellar: Dysmetria/Ataxia: left impairment of coordination on the left with nose to finger
Musculoskeletal:
Motor: (Manual muscle scale 0-5)
Muscle SA EF WE EE FF FA HF KE DF EHL PF
Right� 5 5 5 5 5 5 5 5 5 5 5
Left 4 4 3 4 3 3 4 4 4 4 4
Tone: Normal in all extremities
Range of Motion: Passively within normal limits in all extremities
Lab Results
Labs
WBC 6.2 10^3/uL (4.8-10.8) 06/28/23 06:53
RBC 4.74 10^6/uL (4.20-5.40) 06/28/23 06:53
Hgb 14.5 g/dL (12.0-16.0) 06/28/23 06:53
Hct 43.7 % (37.0-47.0) 06/28/23 06:53
MCV 92.2 fL (81.0-99.0) 06/28/23 06:53
MCH 30.6 pg (27.0-31.0) 06/28/23 06:53
MCHC 33.2 g/dL (33.0-37.0) 06/28/23 06:53
RDW 14.6 % (11.5-14.5) H 06/28/23 06:53
Plt Count 236 10^3/uL (130-400) 06/28/23 06:53
MPV 10.4 fL (7.4-10.4) 06/28/23 06:53
Abs Immat Gran (auto) 0.0 10^3/uL (0-0.05) 06/27/23 06:49
Absolute Neuts (auto) 4.0 10^3/uL (1.4-6.5) 06/27/23 06:49
Absolute Lymphs (auto) 1.6 10^3/uL (1.2-3.4) 06/27/23 06:49
Absolute Monos (auto) 1.0 10^3/uL (0.1-0.6) H 06/27/23 06:49
Absolute Eos (auto) 0.3 10^3/uL (0-0.7) 06/27/23 06:49
Absolute Basos (auto) 0.1 10^3/uL (0-0.2) 06/27/23 06:49
Immature Gran % 0.4 % (0-0.5) 06/27/23 06:49
Neutrophils % 57.9 % (42.2-75.2) 06/27/23 06:49
Lymphocytes % 22.9 % (20.5-51.1) 06/27/23 06:49
Monocytes % 13.7 % (1.7-9.3) H 06/27/23 06:49
Eosinophils % 4.4 % (0-6) 06/27/23 06:49
Basophils % 0.7 % (0-2) 06/27/23 06:49
Nucleated RBC % 0 % 06/27/23 06:49
PT 12.3 Sec (11.4-14.6) 06/26/23 12:38
INR 0.89 06/26/23 12:38
APTT 21.7 Sec (23.4-35.0) L 06/26/23 12:38
Sodium 137 mmol/L (135-145) 06/28/23 06:53
Potassium 4.2 mmol/L (3.5-5.1) 06/28/23 06:53
Chloride 105 mmol/L (98-107) 06/28/23 06:53
Carbon Dioxide 25 mmol/L (22-30) 06/28/23 06:53
BUN 14 mg/dl (7-17) 06/28/23 06:53
Creatinine 0.6 mg/dL (0.6-1.0) 06/28/23 06:53
Estimated Creat Clear 64 ml/min 06/28/23 06:53
eGFR > 60.00 06/28/23 06:53
Glucose 102 mg/dl (70-99) H 06/28/23 06:53
Hemoglobin A1c 5.8 % (4.0-5.6) H 06/27/23 06:49
Calcium 9.4 mg/dl (8.4-10.2) 06/28/23 06:53
Phosphorus 3.9 mg/dl (2.5-4.5) 06/28/23 06:53
Magnesium 2.1 mg/dl (1.6-2.3) 06/28/23 06:53
Total Bilirubin 0.9 mg/dl (0.2-1.3) 06/26/23 12:38
AST 32 U/L (14-36) 06/26/23 12:38
ALT 21 U/L (0-35) 06/26/23 12:38
Alkaline Phosphatase 99 U/L (38-126) 06/26/23 12:38
Total Protein 7.0 g/dl (6.3-8.2) 06/26/23 12:38
Albumin 4.2 g/dl (3.5-5.0) 06/26/23 12:38
Triglycerides 65 mg/dl (10-149) 06/27/23 06:49
Total Cholesterol 230 mg/dl (50-199) H 06/27/23 06:49
LDL Cholesterol, Calc 143 mg/dl 06/27/23 06:49
VLDL Cholesterol, Calc 13 mg/dl (0-30) 06/27/23 06:49
HDL Cholesterol 74 mg/dl 06/27/23 06:49
Vitamin B12 Cancelled 06/26/23 18:30
TSH (Reflex) Cancelled 06/26/23 18:30
Hepatitis C Antibody Negative (Negative) 06/27/23 06:49
�
Diagnostic Results: as per HPI
Assessment 73 years old female with PMH 0f (developmental delay with age equivalent of 7 years old, cognitively, anxiety, hyperlipidemia, seasonal allergies, colon cancer with hemicolectomy 2016) with CVA associated with left sided weakness,
dysphagia , mild expressive/receptive language impairments secondary to nonhemorrhagic acute/subacute right pontine infarct by MRI
Plan
Acute inpatient rehab PT/OT to increase independence with ADLs, improve balance, coordination, endurance, strength, mobility, community reintegration, decreased burden of care on others and family education.
CVA: left sided weakness due to nonhemorrhagic acute/subacute right pontine infarct. prophylaxis with aspirin , plavix, atorvastatin, and hydralazine 10 mg IV l (SBP less than 180 and diastolic less than 100 to participate with therapy for ischemic
stroke). Continue to monitor neurologic status.
Left nondominant hemiparesis: High risk for falls and sliding out of chair/bed. Safety reinforced.
- Avoid using affected arm to help lift or pull patient as this will cause trauma to the shoulder.
Dysphagia: speech evaluation, oral care protocol, aspiration precautions.�Had a video swallow recommended solids(pur�es)-. Coughs with eating and swallowing
Aphasia: Per speech evaluation-mild expressive/receptive language impairments and moderate cognitive-communication impairments characterized by: mild anomia, reduced STM, delayed processing speed, reduced attention, reduced safety awareness/insight,
reduced problem solving skills, reduced orientation; likely acutely related to CVA and exacerbating chronic cognitive impairments.
HTN: Hydralazine 10 mg IV ,monitor closely. Change to PO form
HLD: Atorvastatin 40 mg
Psych: Psychology consult.� Monitor mood, adjust medications as needed. on paroxetine
Skin: monitor for pressure sores/rashes/lesions.
Pain: acetaminophen as needed.
Bowel: Colace and Senna, PRN bisacodyl.
Bladder: Time void, PVRs, PRN straight cath.
DVT Prophylaxis: mechanical, heparin SC
Pulmonary: Incentive spirometry
Safety: Continue to reinforce assistance with all transfers.
Code Status:� Full code
Dispo (date/plan/equipment needs): Home with family care.� Social history reviewed.
Functional and Medical Goals: Modified Independent with ADL�s, ambulation, transfers
Discharge Destination: Acute inpatient rehabilitation
Summary of recommendations:
- Discharge Destination: Acute inpatient rehabilitation
1. CVA: left sided weakness due to nonhemorrhagic acute/subacute right pontine infarct. prophylaxis with aspirin, Plavix , atorvastatin, and hydralazine 10 mg IV l (SBP less than 180 and diastolic less than 100 to participate with therapy for
ischemic stroke). Continue to monitor neurologic status. Recommend switching blood pressure medicine to PO form. Would benefit from acute PT/OT/speech therapy to increase independence with ADLs, improve balance, coordination, endurance, strength,
mobility. Patient is reluctant to acute inpatient rehab and wants to go home. Final decision to be discussed between patient and her brother and niece. Discussed the difference between outpatient therapy versus acute inpatient therapy for
progression to baseline.
2. Bowel: Colace and Senna, PRN bisacodyl. Last Bowel movement 2 days ago, but was NPO. Monitor if needed
3. DVT Prophylaxis: mechanical, heparin SC. If no contraindications.
4. Pulmonary: Incentive spirometry
Thank you for allowing me to care for your patient. Please contact me with any questions or concerns.
This note was dictated using a voice recognition system. Please excuse any typographical errors from petroleum sampler. If you believe there are any discrepancies, please notify our office.

Documented by User: Campos Larson MD 06/29/23 13:00
Consultation - Medical
-
Referring Provider: Amado Light
Chief Complaint: CVA
History of Present Illness: Patient is a 73 year-old female with PMH of (developmental delay with age equivalent of 7 years old cognitively, anxiety, hyperlipidemia, seasonal allergies, colon cancer with hemicolectomy 2016) brought to the ER on 06/26
by her brother whom she lives with for left-sided weakness.� Family has noticed that since the patient seems to have developed some difficulty using the left side.� She seems to have some lack of coordination of the left arm.� They have
observed a left facial droop.� Patient is developmentally delayed.� She lives with her mother all of her life until her mother .� Now she resides with her brother.� He describes her level of cognition is that of a 7-year-old.� She does
not read.� can mimic others writing. Failed bedside swallow and chewing aspirin which she spat up.� Brother reported for the past several months she has had a cough every time she eats.� CT scan of head without acute intracranial process. Moderate
diffuse volume loss. Moderate leukoaraiosis. MRI of the head shows nonhemorrhagic acute/subacute right pontine infarct. No evidence of intracranial metastasis. Had a video swallow test on 06/27/2023 with recommendation of trial diet level 4
solids (pur�e) and thin liquids. Switched now to po intake
MRA Head - 06/29/2023 - Decreased opacification and subsequent cut off of the right posterior cerebral artery at the P2/P3 junction, with poor peripheral collateralization. The basilar artery is intact.
Carotid ultrasound, with less than 50% stenosis bilaterally.
Past Medical History: developmental delay with age equivalent of 7 years old per brother cognitively, anxiety, HLD, seasonal allergies, colon cancer with hemicolectomy 2016.
Procedure History: Left colectomy, melanoma resection;
Family History: Strong family history of CVA, [place], heart disease, cancer
Social History:
Functional Level Premorbidly: Independent with all activities
Functional Level Currently: Patient ambulated 40 feet without device and minimal assistance, mild unsteadiness at times with narrow base of support and occasional balance checks during gait. Easily distracted, very upset, likely impacting her
Safety with ambulation, sit to stand transfer and stand to sit transfer�supervision, Can sit without support for 5 minutes, can stand with moderate support of 1 person, cannot stand without support, cannot stand on none paretic leg
Tobacco: Non-smoker
Alcohol: None
Drug use: None
Lives with: Family
24-hour assistance available: yes
Number of floors: 1
# steps to enter: 0
# steps to second floor: 0
Potential First floor set up:yes
Driving: No
Occupation: Home
�
Allergies:
Allergy/AdvReac Type Severity Reaction Status Date / Time
No Known Allergies Allergy Verified 06/26/23 12:21
Review of Systems:
Constitutional: (x) abNormal _tired
Eye: (x) Normal _
Ear/Nose/Throat: (x) Normal _
Respiratory: (x) Normal _
Cardiovascular: (x) Normal _
Gastrointestinal: (x) coughing with eating, swallowing
Genitourinary: (x) Normal _
Musculoskeletal: (x) Normal _
Integumentary: (x) Normal _
Neurologic: (x) CVA with trouble walking
Psychiatric: (x) depression, developed mentally delayed
Endocrine: (x) Normal _
Hematologic/Lymphatic: (x) Normal _
Allergic/Immunologic: (x) Normal _
Medications:
Active Current Visit Medication List
Category Date Time Status
Acetaminophen [Tylenol/Feverall] Med 06/26/23 22:12 Active
650 mg RECTAL Q4HPRN PRN
Aspirin Chewable [Low Strength Aspirin] Med 06/29/23 08:00 Active
81 mg PO DAILY
Atorvastatin [Lipitor] Med 06/28/23 18:00 Active
40 mg PO QPM
Clopidogrel Bisulfate [Plavix] Med 06/28/23 10:00 Active
75 mg PO DAILY
Cyanocobalamin [Vitamin B-12] Med 06/28/23 08:00 Active
1,000 mcg PO DAILY
Flush (0.9% Sodium Chloride) [Flush (Nss)] Med 06/26/23 23:00 Active
See Dose Instructions IV PER PROTOCOL
HydrALAZINE [Apresoline] Med 06/26/23 17:42 Active
10 mg IV Q6HPRN PRN
Lorazepam [Ativan] Med 06/27/23 11:19 Active
0.5 mg IV ONCE PRN
Paroxetine [Paxil] Med 06/28/23 08:00 Active
10 mg PO DAILY
Active Current Visit Medication List
Vitals:
Temp Pulse Resp BP Pulse Ox
97.5 F 73 16 137/80 93
06/28/23 07:45 06/28/23 07:45 06/28/23 07:45 06/28/23 07:45 06/28/23 07:45
Height 5 ft 1 in
Actual Weight 54.522 kg
Body Mass Index (BMI) 22.7
Physical Exam:
General Appearance/Observation: Well-developed, well-nourished female in no apparent distress.
Pain/Comfort Assessment: Denies
Mood/Affect: Appropriate
Integumentary/Operative Site:
�� Pressure Ulcer Evaluation: absent over heels.
��
Eyes: Conjunctiva/Lids: normal ��� Pupils: pupils equal round and reactive to light and Accommodation
Ears/Nose/Throat: oral mucosa moist,� throat clear.������������ Lips/Teeth/Gums: normal, no teeth
Neck: No muscle spasm or tenderness
Cardiovascular: Heart: regular, no murmur
Pulses: dorsalis pedis 2+ bilaterally
Respiratory: Respiratory Effort/Chest Expansion: normal ������ Auscultation: Clear to auscultation bilaterally
Gastrointestinal: abdomen not tender, distension, normal abdominal bowel sounds
Genitourinary: No Feng
Extremities: Edema: None Cyanosis: None Trophic changes: None
Neurology Exam:
Orientation: Alert, Oriented to self, Place
Memory: Impaired
Higher cortical function
Repetition: Impaired
Comprehension: Impaired some. Have to repeat and cue at times
Two step command: Impaired, better with one-step
Naming: Intact
Cranial Nerves:
�� CNII: Pupillary light reflex: Intact��� Visual Field: Left mom's hemianopsia
�� CN III, IV, : Extraocular muscles: distracted and keeps on turning head with eye movements, but grossly intact
�� CN V: Facial Sensation at Forehead: Intact, Maxilla: Intact, Mandible: Intact
�� CN VII: Facial movement: some left facial weakness
�� CN VIII: Hearing: Normal
�� CN IX/X: Speech & swallow:low tone, Position of Uvula: Midline
�� CN XI: Shoulder shrug: left weakness
�� CN XII: Tongue protrusion: Midline
Sensory:
�� Light touch: Intact in right upper and lower extremities. Impaired left upper and lower extremities
��
Reflexes:
�� Biceps: 2+ bilaterally
�� Brachioradialis: 2+ bilaterally
�� Triceps: 2+ bilaterally
�� Patellar: 2+ bilaterally
�� Achilles: 2+ bilaterally
�� Babinski: Negative bilaterally
�� Clonus: deferred
�� Natalie: positive on right
Cerebellar: Dysmetria/Ataxia: left impairment of coordination on the left with nose to finger
Musculoskeletal: Motor: (Manual muscle scale 0-5)
Muscle SA EF WE EE FF FA HF KE DF EHL PF
Right� 5 5 5 5 5 5 5 5 5 5 5
Left 4 4 3 4 3 3 4 4 4 4 4
Tone: Normal in all extremities
Range of Motion: Passively within normal limits in all extremities
Lab Results
Labs
WBC 6.2 10^3/uL (4.8-10.8) 06/28/23 06:53
RBC 4.74 10^6/uL (4.20-5.40) 06/28/23 06:53
Hgb 14.5 g/dL (12.0-16.0) 06/28/23 06:53
Hct 43.7 % (37.0-47.0) 06/28/23 06:53
MCV 92.2 fL (81.0-99.0) 06/28/23 06:53
MCH 30.6 pg (27.0-31.0) 06/28/23 06:53
MCHC 33.2 g/dL (33.0-37.0) 06/28/23 06:53
RDW 14.6 % (11.5-14.5) H 06/28/23 06:53
Plt Count 236 10^3/uL (130-400) 06/28/23 06:53
MPV 10.4 fL (7.4-10.4) 06/28/23 06:53
Abs Immat Gran (auto) 0.0 10^3/uL (0-0.05) 06/27/23 06:49
Absolute Neuts (auto) 4.0 10^3/uL (1.4-6.5) 06/27/23 06:49
Absolute Lymphs (auto) 1.6 10^3/uL (1.2-3.4) 06/27/23 06:49
Absolute Monos (auto) 1.0 10^3/uL (0.1-0.6) H 06/27/23 06:49
Absolute Eos (auto) 0.3 10^3/uL (0-0.7) 06/27/23 06:49
Absolute Basos (auto) 0.1 10^3/uL (0-0.2) 06/27/23 06:49
Immature Gran % 0.4 % (0-0.5) 06/27/23 06:49
Neutrophils % 57.9 % (42.2-75.2) 06/27/23 06:49
Lymphocytes % 22.9 % (20.5-51.1) 06/27/23 06:49
Monocytes % 13.7 % (1.7-9.3) H 06/27/23 06:49
Eosinophils % 4.4 % (0-6) 06/27/23 06:49
Basophils % 0.7 % (0-2) 06/27/23 06:49
Nucleated RBC % 0 % 06/27/23 06:49
PT 12.3 Sec (11.4-14.6) 06/26/23 12:38
INR 0.89 06/26/23 12:38
APTT 21.7 Sec (23.4-35.0) L 06/26/23 12:38
Sodium 137 mmol/L (135-145) 06/28/23 06:53
Potassium 4.2 mmol/L (3.5-5.1) 06/28/23 06:53
Chloride 105 mmol/L (98-107) 06/28/23 06:53
Carbon Dioxide 25 mmol/L (22-30) 06/28/23 06:53
BUN 14 mg/dl (7-17) 06/28/23 06:53
Creatinine 0.6 mg/dL (0.6-1.0) 06/28/23 06:53
Estimated Creat Clear 64 ml/min 06/28/23 06:53
eGFR > 60.00 06/28/23 06:53
Glucose 102 mg/dl (70-99) H 06/28/23 06:53
Hemoglobin A1c 5.8 % (4.0-5.6) H 06/27/23 06:49
Calcium 9.4 mg/dl (8.4-10.2) 06/28/23 06:53
Phosphorus 3.9 mg/dl (2.5-4.5) 06/28/23 06:53
Magnesium 2.1 mg/dl (1.6-2.3) 06/28/23 06:53
Total Bilirubin 0.9 mg/dl (0.2-1.3) 06/26/23 12:38
AST 32 U/L (14-36) 06/26/23 12:38
ALT 21 U/L (0-35) 06/26/23 12:38
Alkaline Phosphatase 99 U/L (38-126) 06/26/23 12:38
Total Protein 7.0 g/dl (6.3-8.2) 06/26/23 12:38
Albumin 4.2 g/dl (3.5-5.0) 06/26/23 12:38
Triglycerides 65 mg/dl (10-149) 06/27/23 06:49
Total Cholesterol 230 mg/dl (50-199) H 06/27/23 06:49
LDL Cholesterol, Calc 143 mg/dl 06/27/23 06:49
VLDL Cholesterol, Calc 13 mg/dl (0-30) 06/27/23 06:49
HDL Cholesterol 74 mg/dl 06/27/23 06:49
Vitamin B12 Cancelled 06/26/23 18:30
TSH (Reflex) Cancelled 06/26/23 18:30
Hepatitis C Antibody Negative (Negative) 06/27/23 06:49
�
Diagnostic Results: as per HPI
Assessment 73 years old right-handed female with PMH 0f (developmental delay with age equivalent of 6 years old, cognitively, anxiety, hyperlipidemia, seasonal allergies, colon cancer with hemicolectomy 2016) with CVA associated with left sided
weakness, dysphagia , mild expressive/receptive language impairments secondary to nonhemorrhagic acute/subacute right pontine infarct by MRI
Plan
Acute inpatient rehab PT/OT to increase independence with ADLs, improve balance, coordination, endurance, strength, mobility, community reintegration, decreased burden of care on others and family education.
CVA: left sided weakness due to nonhemorrhagic acute/subacute right pontine infarct. Secondary prophylaxis with aspirin, plavix, atorvastatin, and BP control (SBP less than 180 and diastolic less than 100 to participate with therapy for ischemic
stroke). Continue to monitor neurologic status.
Left nondominant hemiparesis: High risk for falls and sliding out of chair/bed. Safety reinforced.
- Avoid using affected arm to help lift or pull patient as this will cause trauma to the shoulder.
Dysphagia: speech, oral care protocol, aspiration precautions.�Had a video swallow recommended solids(pur�es). Coughs with eating and swallowing
Aphasia: Per speech evaluation-mild expressive/receptive language impairments and moderate cognitive-communication impairments characterized by: mild anomia, reduced STM, delayed processing speed, reduced attention, reduced safety awareness/insight,
reduced problem solving skills, reduced orientation; likely acutely related to CVA and exacerbating chronic cognitive impairments.
HTN: Hydralazine 10 mg IV, monitor closely. Change to PO form
HLD: Atorvastatin 40 mg
Psych: Psychology consult.� Monitor mood, adjust medications as needed. on paroxetine
Skin: monitor for pressure sores/rashes/lesions.
Pain: acetaminophen as needed.
Bowel: Colace and Senna, PRN bisacodyl.
Bladder: Time void, PVRs, PRN straight cath.
DVT Prophylaxis: mechanical, consider Lovenox
Pulmonary: Incentive spirometry
Safety: Continue to reinforce assistance with all transfers.
Code Status:� Full code
Dispo (date/plan/equipment needs): Home with family care.� Social history reviewed.
Functional and Medical Goals: Modified Independent with ADL�s, ambulation, transfers
Discharge Destination: Acute inpatient rehabilitation when medically stable.
Summary of recommendations:
- Discharge Destination: Acute inpatient rehabilitation
1. CVA: left sided weakness due to nonhemorrhagic acute/subacute right pontine infarct. prophylaxis with aspirin, Plavix , atorvastatin, and hydralazine 10 mg IV l (SBP less than 180 and diastolic less than 100 to participate with therapy for
ischemic stroke). Continue to monitor neurologic status. Recommend switching blood pressure medicine to PO form. Would benefit from acute PT/OT/speech therapy to increase independence with ADLs, improve balance, coordination, endurance, strength,
mobility. Patient is reluctant to acute inpatient rehab and wants to go home. Final decision to be discussed between patient and her brother and niece. Discussed the difference between outpatient therapy versus acute inpatient therapy for
progression to baseline.
2. Bowel: Colace and Senna, PRN bisacodyl. Last Bowel movement 2 days ago, but was NPO.
3. DVT Prophylaxis: mechanical, consider Lovenox
4. Bladder: Time void, PVRs, PRN straight cath.
Attending statement:
I saw and examined the patient today. Reviewed care plan with patient, therapy, nursing, and physician refinery operator assistant. I agree with the above subjective, physical exam, and plan as documented above.
Thank you for allowing me to care for your patient. Please contact me with any questions or concerns.
This note was dictated using a voice recognition system. Please excuse any typographical errors from petroleum sampler. If you believe there are any discrepancies, please notify our office.
[2023-06-27 19:00] VITALS: BP 129/74
[2023-06-27 19:44] LABS: Hepatitis C Antibody Negative (Negative)
--- NOTE | 2023-06-27 21:24 | PTCARENOTE ---
Pt with asymptomatic 13-beat run of PVCs. House SEWER PIPE OFFBEARER Maria Teresa Moreno notified, no new orders at this time. Will continue to monitor and pass along in the morning.
[2023-06-27 23:00] VITALS: BP 125/78
[2023-06-28] VITALS (7 sets, daily range): BP systolic 116–137; BP diastolic 68–83; PULSE 95; O2SAT 95
--- NOTE | 2023-06-28 05:13 | PTCARENOTE ---
Pt with no urine output during shift. Bladder scan result 385 mL. Pt voided a moderate amount of urine after being prompted to void. Will continue to monitor.
[2023-06-28 07:18] LABS: Hematocrit 43.7 % (37.0-47.0); Hemoglobin 14.5 g/dL (12.0-16.0); Mean Corp Hgb Conc. 33.2 g/dL (33.0-37.0); Mean Corpuscular Hgb 30.6 pg (27.0-31.0); Mean Corpuscular Volume 92.2 fL (81.0-99.0); Mean Platelet Volume 10.4 fL (7.4-10.4); Platelet Count 236 10^3/uL (130-400); Red Blood Cell Count 4.74 10^6/uL (4.20-5.40); Red Cell Dist. Width 14.6 % (11.5-14.5); White Blood Cell Count 6.2 10^3/uL (4.8-10.8)
[2023-06-28] MEDS: ASPIRIN 300 MG RECTAL (07:42)
[2023-06-28] MEDS: VITAMIN B-12 1000 MCG PO (07:42)
[2023-06-28] MEDS: PAXIL 10 MG PO (07:42)
[2023-06-28 07:49] LABS: Blood Urea Nitrogen 14 mg/dl (7-17); Calcium 9.4 mg/dl (8.4-10.2); Carbon Dioxide 25 mmol/L (22-30); Chloride 105 mmol/L (98-107); Estimated Creatinine Clearance 64 ml/min; Glucose 102 mg/dl (70-99); Magnesium 2.1 mg/dl (1.6-2.3); Phosphorus 3.9 mg/dl (2.5-4.5); Potassium 4.2 mmol/L (3.5-5.1); Sodium 137 mmol/L (135-145); eGFR > 60.00
--- NOTE | 2023-06-28 08:27 | W.PN.HOSP.TC ---
Today's Communication/Plan
-
DAPT statin
aspiration precautions
PT/OT
pending PMR eval
cont B12 supplementation
Assessment / Plan
Assessment / Plan
Physical Exam
General:�No acute distress
HEENT:�NormoCephalic, PERRLA, [place] Conjunctivae, No Ptosis
Respiratory:�Clear; No Wheezes, Rales or Rhonchi
Cardiac:�S1/S2 and Regular Rhythm; No Murmur, Rub, Gallop or Peripheral Edema
GI:�Soft, Non Tender, Non Distended, Normal Bowel Sounds and No Hepatosplenomegaly
Musculoskeletal:�No Clubbing, No Cyanosis and No Edema
Skin:�Warm and Dry; No Rash or Jaundice
Neuro:�Awake, Alert, left arm leg weakness 4/5
Psych:�Calm
HPI: 73F brought to the ER by her brother who she lives with, p/w left-sided weakness left facial droop noticed 4 days ago.� Brother reported she c/o headache past 2 days.� Hypertensive on arrival but blood pressure did improve after calming down.�
Failed bedside swallow and chewing aspirin which she spat up.� Brother reported for the past several months she has had a cough every time she eats.� The patient has history of developmental delay. She lived with her mother until she
2018.
PMH developmental delay with age equivalent of 7 years old per brother cognitively, anxiety, HLD, seasonal allergies, colon cancer with hemicolectomy 2016.
#Left facial droop left arm weakness concern for CVA/TIA
Symptoms x 4 days per family
-Consult neurology appreciated
-Neurochecks every 4 [address] head:�No acute intracranial process.� Moderate diffuse volume loss
-MRI brain appreciated Nonhemorrhagic acute/subacute right pontine infarct.
-Aspirin rectal converted to oral tolerating diet, plavix added as per neuro, 21 days DAPT
-Carotid US appreciated no significant stenosis
-ECHO appreciated preserved EF no acute valve abn's
-PT/OT appreciated Acute Rehab, PMR eval pending
Prediabetes
HgA1c 5.8
Hyperlipidemia
LDL goal <70
statin started
B12 deficiency
supplementation started as per neuro, cont
�#Acute on chronic dysphagia
�failed bedside swallow coughing when try mary chew aspirin, brother states coughs every time she eats for several months
-Speech swallow eval appreciated with VSE high risk aspiration
(1) Trial diet of IDDSI Level 4 Solids (Puree) and thin liquids
(2) Aspiration precautions: Chin tuck with puree, single cup sips of liquids only, slow rate, sit upright
(3) Meds crushed in puree as able
HTN likely 2/2 to Anxiety
improved when calm
IV hydralazine prn
-Goal normotension
EKG: Sinus tachycardia 101 bpm, QTc 448 MS no significant change from January 2014
#History developmental delay since
-brother reports age equivalent 7 years old
#Anxiety
-Paxil resumed
#Hx colon cancer with hemicolectomy 2015
-Patient and mother opted not to do radiation or chemo at that time
#Seasonal allergies
-Continue Flonase
DVT prophylaxis
SCDs
discussed with patient and patient's brother Jose at bedside
I spent a total of 50 minutes with the patient or on the floor. More than 50% of this time involved counseling and coordination of care.
Anticipated Discharge: 24 - 48 hours
Subjective/Interval History
-
Date of Service: June 28, 2023
Seen and examined at bedside. Brother Jose present during evaluation. Patient appears well no acute distress tolerating pureed diet. Denies new acute issues.
Objective Data
-
Labs:
Laboratory Results
06/28/23
06:53
WBC 6.2
Hgb 14.5
Hct 43.7
Plt Count 236
Sodium 137
Potassium 4.2
Chloride 105
Carbon Dioxide 25
BUN 14
Creatinine 0.6
Glucose 102 H
Calcium 9.4
Vital Signs:
Vital Signs
Temp Pulse Resp BP Pulse Ox
97.5 F 73 16 137/80 93
06/28/23 07:45 06/28/23 07:45 06/28/23 07:45 06/28/23 07:45 06/28/23 07:45
I&O
06/27/23 06/28/23 06/29/23
06:59 06:59 06:59
Intake Total 0 / 0 240 / 240
Balance 0 / 0 240 / 240
--- NOTE | 2023-06-28 09:30 | W.PN.NEURO.1 ---
Addendum entered and electronically signed by Eliseo Khalil MD 06/28/23 11:15:
Studies reviewed.
I have personally examined the patient. I reviewed and agree with the TAPER AND FLOATER's Note.
My addenda:
Awake, alert, interactive. No acute distress.
Speech intact.
Follows 2-step requests w/ mild difficulty. No tremor.
Extra-ocular movements grossly intact.
Facial movements full and symmetric. Hearing intact to normal conversational volume.
Normal UE movements bilaterally.
Neck: full ROM.
Chest: no dyspnea
Heart: no JVD
Ext: (-) Clubbing, (-) Cyanosis, (-) Edema
IMPRESSIONS/RECOMMENDATIONS:
Abrupt onset of dysphagia and left-sided weakness
due to right-pontine ischemic stroke
change ASA to PO, lifelong
add Clopidogrel 75 mg daily for 21 days, then discontinue
Atorvastatin 40 mg daily
rehabilitation evaluations and treatments
continue cyanocobalamin lifelong
Will continue to follow as outpatient.
Original Note:
Documented by User: Syeda Vincent NP 06/28/23 10:41
Today's Communication / Plan
-
.
Neuro Assessment/Plan
Assessment
This is a 73-year-old right-handed female who presented to on 06/26/23 with report of left-sided weakness. Ms. Becker is developmentally delayed/tearful/unable to provide a history.� According to patient's brother Larisa had change in balance and
left facial asymmetry starting on 06/23/2023.� She required assistance to ambulate yesterday in the evening after the family had dinner prompting this evaluation.� No reports of headache, change in vision, history of seizures.� Ms. Becker reportedly
has baseline cognitive impaired. She is usually able to ambulate unassisted, able to dress, bath and unable to read, write, use remote control or washing machine. She requires reminders with self hygiene.
ER VS: 149/100, 106, afebrile
EKG: NSR, �QTc Int : 448 ms
Labs: Glucose�109, normal WBCs, creatinine, Pl
CT head-moderate diffuse volume loss. Moderate leukoaraiosis, no acute infarcts.
EKG: NSR, �QTc Int : 448 ms
PDMP: No prescribed medications
MRI Brain 06/27/23: Nonhemorrhagic acute/subacute right pontine infarct. No evidence for intracranial metastasis.
MRA Head 06/27/23: Decreased opacification and subsequent cut off of the right posterior cerebral artery at the P2/P3 junction, with poor peripheral collateralization. The basilar artery is intact.
Carotid Ultrasound 06/27/23: �Carotid velocity measurements are consistent with less than 50% stenosis.� Vertebral artery flow is antegrade.
Echo 06/27/23: Normal biventricular size and systolic function without regional wall motion�abnormality. No significant valvular disease.
She was outside of the time window for IV TNK/IAT as symptom onset was 72 hours before presentation.
I. Acute/subacute right pontine ischemic infarct in the setting of right PRN OCCUPATIONAL THERAPIST stenosis. Etiology likely vascular.
II. History of colon CA, melanoma. No evidence of brain metastases on MRI brain imaging.
III. Developmental encephalopathy, unclear etiology.
IV. Dysphagia
Plan
-Change rectal aspirin to aspirin 81mg daily PO as patient is cleared for a diet now per ST. Initiate Plavix 75mg PO daily for 21 days. After 21 days, discontinue Plavix and continue aspirin 81mg daily only, indefinitely.
-Goal normotension as symptom onset was greater than 24 hours ago.
-Monitor on telemetry.
-LDL goal <70. LDL is 143. Atorvastatin 40mg daily initiated.
-Goal normoglycemia, hbA1c is 5.8.
-NIHSS and neurological checks per unit guidelines.
-Provide patient/family with stroke education packet.
-B12 level is low at 225. Continue newly initiated cyanocobalamin 1000mcg PO daily.
-DVT prophylaxis.
-PT/OT/ST evaluations.
-Will follow as-needed. Please contact our Neurology service with any questions/concerns. Patient should follow-up with Neurology as an outpatient in 4-6 weeks. May see the TAPER AND FLOATER Teresa Vicente and one of the physicians.
Subjective/Objective
Subjective Data
Date of Service: June 28, 2023
No acute events overnight. Patient is tearful, reports feeling scared. She is on a pureed diet now and reports that her left side is feeling slightly stronger than yesterday. She denies any headache, dizziness, vision changes, speech difficulty,
nausea, numbness, chest pain, palpitations, and shortness of breath.
Objective Data
Vital Signs
Temp Pulse Resp BP Pulse Ox
97.5 F 73 16 137/80 93
06/28/23 07:45 06/28/23 07:45 06/28/23 07:45 06/28/23 07:45 06/28/23 07:45
Lab Results
06/28/23 06:53
06/28/23 06:53
PT 12.3 Sec (11.4-14.6) 06/26/23 12:38
INR 0.89 06/26/23 12:38
APTT 21.7 Sec (23.4-35.0) L 06/26/23 12:38
Sodium 137 mmol/L (135-145) 06/28/23 06:53
Potassium 4.2 mmol/L (3.5-5.1) 06/28/23 06:53
BUN 14 mg/dl (7-17) 06/28/23 06:53
Glucose 102 mg/dl (70-99) H 06/28/23 06:53
Calcium 9.4 mg/dl (8.4-10.2) 06/28/23 06:53
Phosphorus 3.9 mg/dl (2.5-4.5) 06/28/23 06:53
LDL Cholesterol, Calc 143 mg/dl 06/27/23 06:49
Vitamin B12 Cancelled 06/26/23 18:30
Patient Allergies
No Known Allergies Allergy (Verified 06/26/23 12:21)
LDL Level: >70, statin ordered
Review of Systems
-
History Source: Patient
EENT: Eye Pain and Swallowing Difficulty; Negative Blurry Vision or Decreased Vision
Respiratory: Negative Trouble Breathing
Cardiac: Negative Chest Pain or Palpitations
Abdomen/GI: Negative Nausea
Neuro: Weakness; Negative Dizzy, Headache, Numbness, Ataxia, Tremors or Speech Problem
Physical Exam
-
General: Appears in Distress (tearful)
Eyes: No Ptosis and PERRLA
HEENT: Normocephalic and Atraumatic
Neck: Full Range of Motion
Respiratory: No Dyspnea
GI: Non-distended
Extremities: No Clubbing, No Cyanosis and No Edema
Psych: Anxious (tearful)
Extended Neurological Exam
Mood & Affect: Anxious (tearful)
Attention Span & Concentration: Awake, Alert and Interactive
Memory: Incomplete Historian (AAOX3)
Tremor: Hand Tremor Absent and Head Tremor Absent
Involuntary Movement: None
Speech: Quality Unremarkable, Quantity Unremarkable and Rate of Production Unremarkable
Cranial Nerve II: Left Eye: Pupillary Reactivity Unremarkable, Pupillary Size Unremarkable and Visual Azar Intact
Cranial Nerve II: Right Eye: Pupillary Reactivity Unremarkable, Pupillary Size Unremarkable and Visual Azar Intact
Cranial Nerves III, IV, : Extraocular Movement: Extraocular Movement Full in all Directions
Cranial Nerve VII: Facial Symmetry: Reduced (slight left facial drooping)
Cranial Nerve VIII: Hearing: Unremarkable Hearing to Normal Conversational Volume
Cranial Nerves IX, X: Palate Movement: Palate Elevation Symmetric
Cranial Nerve XII: Tongue Protusion: Midline
Muscle Strength, Overall: Reduced on Left (LUE 4-/5, LLE 4/5)
Pronator Drift: Drift in Left Upper Extremity and Drift in Left Lower Extremity
Touch Sensation: Double Simultaneous Stimulation Unremarkable
Coordination: Negative Arsewq-savd-ywpnna Testing Unremarkable (LUE ataxia)
Modified Palomo Score (MRS)
-
MRS Score: 4
Data Reviewed
-
CT Head: Report Reviewed and Image Reviewed
MRI Head: Report Reviewed and Image Reviewed
MRA Head: Report Reviewed and Image Reviewed
Carotid Ultrasound: Report Reviewed
Labs: Report Reviewed
Lipid Profile: Report Reviewed
HgbA1C: Report Reviewed
Reviewed with: Physician and Patient
Medications
-
Active Medications
Generic Name Dose Route Start Last Admin
Trade Name Freq PRN Reason Stop Dose Admin
Acetaminophen 650 mg 06/26/23 22:12
Acetaminophen 650 Mg Rectal Suppository RECTAL 07/24/23 22:11
Q4HPRN PRN
JACOBSEN, mild pain, or temp >100.4F
Aspirin 300 mg 06/27/23 08:00 06/28/23 07:42
Aspirin 300 Mg Rectal Suppository RECTAL 07/25/23 07:59 300 mg
DAILY JOAQUIM Administration
Cyanocobalamin 1,000 mcg 06/28/23 08:00 06/28/23 07:42
Cyanocobalamin 1,000 Mcg Tablet PO 07/26/23 07:59 1,000 mcg
DAILY JOAQUIM Administration
Hydralazine HCl 10 mg 06/26/23 17:42 06/26/23 18:23
Hydralazine 20 Mg/Ml Vial IV 07/24/23 17:41 10 mg
Q6HPRN PRN Administration
sbp>165 luisa>110
Lorazepam 0.5 mg 06/27/23 11:19
Lorazepam 2 Mg/Ml Vial IV 07/25/23 11:18
ONCE PRN
hotel front desk agent to MRI
Paroxetine HCl 10 mg 06/28/23 08:00 06/28/23 07:42
Paroxetine 10 Mg Tablet PO 07/26/23 07:59 10 mg
DAILY JOAQUIM Administration
Sodium Chloride 0 flush 06/26/23 23:00
Sodium Chloride 0.9% (Flush) Syringe IV 07/24/23 22:59
PER PROTOCOL JOAQUIM
Home Medications
Medication Instructions Recorded
acetaminophen 500 mg tablet 1,000 mg PO DAILYPRN PRN mild pain 06/26/23
(Tylenol Extra Strength)
benzonatate 100 mg capsule 100 mg PO QPM Cough 06/26/23
fluticasone propionate 50 1 spray intranasal DAILY Allergies 06/26/23
mcg/actuation nasal
spray,suspension
ibuprofen 1 dose PO DAILYPRN PRN mild pain 06/26/23
paroxetine HCl 10 mg/5 mL oral 10 mg PO DAILY Mental 06/26/23
suspension Health/Anxiety
NIH Stroke Score
Subsequent NIH Scale
Date of Subsequent NIH Scale: 06/28/23
Time of Subsequent NIH Scale: 10:00
NIH Stroke Score
Level of Consciousness: 0 - Alert
LOC Questions: 0-Answers both correctly
LOC Commands: 0-Performs both correctly
Best Horizontal Gaze: 0-Normal
Visual Azar: 0=Normal, no visual loss
Facial Palsy: 1=Minor paralysis
Motor - Right Arm: 0=No drift 10 seconds
Motor - Left Arm: 1=Drift < 10 seconds
Motor - Right Le-No drift 5 seconds
Motor - Left Le-Drift < 5 seconds
Limb Ataxia: 1-Present in one limb
Sensation: 0-Normal
Best Language: 0-No aphasia
Dysarthria: 0-Normal
Extinction and Inattention: 0-No abnormality
Total Score:: 4

Documented by User: Eliseo Khalil MD 06/28/23 10:57
Neuro Assessment/Plan
Plan
-Change rectal aspirin to aspirin 81mg daily PO as patient is cleared for a diet now per ST.
Initiate Plavix 75mg PO daily for 21 days. After 21 days, discontinue Plavix and continue aspirin 81mg daily only, indefinitely.
-Goal normotension as symptom onset was greater than 24 hours ago.
-Monitor on telemetry.
-LDL goal <70. LDL is 143. Atorvastatin 40mg daily initiated.
-Goal normoglycemia, hbA1c is 5.8.
-NIHSS and neurological checks per unit guidelines.
-Provide patient/family with stroke education packet.
-B12 level is low at 225. Continue newly initiated cyanocobalamin 1000mcg PO daily.
-DVT prophylaxis.
-PT/OT/ST evaluations.
-Will follow as-needed. Please contact our Neurology service with any questions/concerns. Patient should follow-up with Neurology as an outpatient in 4-6 weeks. May see the TAPER AND FLOATER Teresa Vicente and one of the physicians.
NIH Stroke Score
NIH Stroke Score
Total Score:: 4
[2023-06-28] MEDS: PLAVIX 75 MG PO (10:01)
--- NOTE | 2023-06-28 16:52 | CM ---
met with patient and her brother chavo.pt with a pontine stroke.is eating solids foods,ambulating better.patient is anxious to return home.
plan :patient wants to discharge directly home,awaiting further recs from therapy.pmr has been consulted.
[2023-06-28] MEDS: LIPITOR 40 MG PO (17:26)
[2023-06-29] VITALS (8 sets, daily range): BP systolic 120–146; BP diastolic 65–89; PULSE 108
[2023-06-29] MEDS: TYLENOL 650 MG PO (06:24)
--- NOTE | 2023-06-29 06:30 | PTCARENOTE ---
Pt reports pain throughout her left arm, unable to rate pain at this time. Ice pack applied to left arm. House SUPERVISOR POWDER AND PRIMER CANNING Daiana Merlos notified, PRN rectal Tylenol switched to PO q4h and provided to pt crushed in applesauce. Pt sitting up in chair at
bedside with no further complaints.
[2023-06-29 07:34] LABS: Blood Urea Nitrogen 19 mg/dl (7-17); Calcium 9.3 mg/dl (8.4-10.2); Carbon Dioxide 29 mmol/L (22-30); Chloride 99 mmol/L (98-107); Estimated Creatinine Clearance 55 ml/min; Glucose 94 mg/dl (70-99); Hemoglobin 14.5 g/dL (12.0-16.0); Magnesium 2.1 mg/dl (1.6-2.3); Mean Corp Hgb Conc. 33.7 g/dL (33.0-37.0); Mean Corpuscular Hgb 30.5 pg (27.0-31.0); Mean Corpuscular Volume 90.5 fL (81.0-99.0); Mean Platelet Volume 10.8 fL (7.4-10.4); Phosphorus 3.9 mg/dl (2.5-4.5); Platelet Count 262 10^3/uL (130-400); Potassium 3.9 mmol/L (3.5-5.1); Red Blood Cell Count 4.75 10^6/uL (4.20-5.40); Red Cell Dist. Width 14.6 % (11.5-14.5); Sodium 138 mmol/L (135-145); White Blood Cell Count 6.4 10^3/uL (4.8-10.8); eGFR > 60.00
[2023-06-29] MEDS: PAXIL 10 MG PO (07:53)
[2023-06-29] MEDS: LOW STRENGTH ASPIRIN 81 MG PO (07:53)
--- NOTE | 2023-06-29 07:55 | W.PN.HOSP.TC ---
Today's Communication/Plan
-
cont DAPT statin B12 supplementation
ST/PT/OT
stable for discharge to Acute Rehab awaiting insurance authorization
Assessment / Plan
Assessment / Plan
Physical Exam
General:�No acute distress
HEENT:�NormoCephalic, PERRLA, [place] Conjunctivae, No Ptosis
Respiratory:�Clear; No Wheezes, Rales or Rhonchi
Cardiac:�S1/S2 and Regular Rhythm; No Murmur, Rub, Gallop or Peripheral Edema
GI:�Soft, Non Tender, Non Distended, Normal Bowel Sounds and No Hepatosplenomegaly
Musculoskeletal:�No Clubbing, No Cyanosis and No Edema
Skin:�Warm and Dry; No Rash or Jaundice
Neuro:�Awake, Alert, conversant, left arm leg weakness 4/5
Psych:�Calm
HPI: 73F brought to the ER by her brother who she lives with, p/w left-sided weakness left facial droop noticed 4 days ago.� Brother reported she c/o headache past 2 days.� Hypertensive on arrival but blood pressure did improve after calming down.�
Failed bedside swallow and chewing aspirin which she spat up.� Brother reported for the past several months she has had a cough every time she eats.� The patient has history of developmental delay. She lived with her mother until she
2018.
PMH developmental delay with age equivalent of 7 years old per brother cognitively, anxiety, HLD, seasonal allergies, colon cancer with hemicolectomy 2016.
#Left facial droop left arm weakness concern for CVA/TIA
Symptoms x 4 days per family
-Consult neurology appreciated
-CT head:�No acute intracranial process.� Moderate diffuse volume loss
-MRI brain appreciated Nonhemorrhagic acute/subacute right pontine infarct.
-Aspirin rectal converted to oral tolerating diet, plavix added as per neuro, 21 days DAPT
-Carotid US appreciated no significant stenosis
-ECHO appreciated preserved EF no acute valve abn's
-PT/OT appreciated Acute Rehab, PMR eval appreciated accepted to [facility], insurance authorization pending
Prediabetes
HgA1c 5.8
Hyperlipidemia
LDL goal <70
cont statin
B12 deficiency
supplementation to cont indefinitely as per neuro
�#Acute on chronic dysphagia
�failed bedside swallow coughing when try mary chew aspirin, brother states coughs every time she eats for several months
-Speech swallow eval appreciated with VSE high risk aspiration
(1) Trial diet of IDDSI Level 4 Solids (Puree) and thin liquids
(2) Aspiration precautions: Chin tuck with puree, single cup sips of liquids only, slow rate, sit upright
(3) Meds crushed in puree as able
HTN likely 2/2 to Anxiety
improved when calm
IV hydralazine prn
-Goal normotension
EKG: Sinus tachycardia 101 bpm, QTc 448 MS no significant change from January 2014
#History developmental delay since
-brother reports age equivalent 7 years old
#Anxiety
-Paxil resumed
#Hx colon cancer with hemicolectomy 2015
-Patient and mother opted not to do radiation or chemo at that time
#Seasonal allergies
-Continue Flonase
DVT prophylaxis
SCDs
I spent a total of 50 minutes with the patient or on the floor. More than 50% of this time involved counseling and coordination of care.
Anticipated Discharge: 24 - 48 hours
Subjective/Interval History
-
Date of Service: June 29, 2023
no acute distress sitting up comfortably in chair. Denies any new acute issues at this time.
Objective Data
-
Labs:
Laboratory Results
06/29/23
06:18
WBC Pending
Hgb Pending
Hct Pending
Plt Count Pending
Sodium 138
Potassium 3.9
Chloride 99
Carbon Dioxide 29
BUN 19 H
Creatinine 0.7
Glucose 94
Calcium 9.3
Vital Signs:
Vital Signs
Temp Pulse Resp BP Pulse Ox
97.9 F 67 18 128/74 95
06/29/23 04:03 06/29/23 04:03 06/29/23 04:03 06/29/23 04:03 06/29/23 04:03
I&O
06/28/23 06/29/23 06/30/23
06:59 06:59 06:59
Intake Total 240 / 240 600 / 600
Output Total 800 / 800
Balance 240 / 240 -200 / -200
[2023-06-29] MEDS: VITAMIN B-12 1000 MCG PO (08:01)
[2023-06-29] MEDS: PLAVIX 75 MG PO (08:01)
--- NOTE | 2023-06-29 11:51 | CM ---
Addendum entered by Cindy Pratt 06/29/23 11:55:
Insurance authorization submitted; clinicals faxed to [facility] #
Original Note:
CARLOS spoke with Nellie Zambrano early this morning; PM&R evaluation completed; bed available
Plan: discharge to [facility] pending insurance authorization
[2023-06-29] MEDS: LIPITOR 40 MG PO (16:47)
[2023-06-30 04:00] VITALS: BP 127/79
--- NOTE | 2023-06-30 07:12 | W.PN.HOSP.TC ---
Today's Communication/Plan
-
Stable for discharge [facility] pending insurance auth
Assessment / Plan
Assessment / Plan
Physical Exam
General:�No acute distress
HEENT:�NormoCephalic, PERRLA, [place] Conjunctivae, No Ptosis
Respiratory:�Clear; No Wheezes, Rales or Rhonchi
Cardiac:�S1/S2 and Regular Rhythm; No Murmur, Rub, Gallop or Peripheral Edema
GI:�Soft, Non Tender, Non Distended, Normal Bowel Sounds and No Hepatosplenomegaly
Musculoskeletal:�No Clubbing, No Cyanosis and No Edema
Skin:�Warm and Dry; No Rash or Jaundice
Neuro:�Awake, Alert, conversant, left arm leg weakness 4/5
Psych:�Calm
HPI: 73F brought to the ER by her brother who she lives with, p/w left-sided weakness left facial droop noticed 4 days ago.� Brother reported she c/o headache past 2 days.� Hypertensive on arrival but blood pressure did improve after calming down.�
Failed bedside swallow and chewing aspirin which she spat up.� Brother reported for the past several months she has had a cough every time she eats.� The patient has history of developmental delay. She lived with her mother until she
2018.
PMH developmental delay with age equivalent of 7 years old per brother cognitively, anxiety, HLD, seasonal allergies, colon cancer with hemicolectomy 2016.
#Left facial droop left arm weakness concern for CVA/TIA
Symptoms x 4 days per family
-Consult neurology appreciated
-CT head:�No acute intracranial process.� Moderate diffuse volume loss
-MRI brain appreciated Nonhemorrhagic acute/subacute right pontine infarct.
-Aspirin rectal converted to oral tolerating diet, plavix added as per neuro, 21 days DAPT
-Carotid US appreciated no significant stenosis
-ECHO appreciated preserved EF no acute valve abn's
-PT/OT appreciated Acute Rehab, PMR eval appreciated accepted to [facility], insurance authorization pending
Prediabetes
HgA1c 5.8
Hyperlipidemia
LDL goal <70
cont statin
B12 deficiency
supplementation to cont indefinitely as per neuro
�#Acute on chronic dysphagia
�failed bedside swallow coughing when try mary chew aspirin, brother states coughs every time she eats for several months
-Speech swallow eval appreciated with VSE high risk aspiration
(1) Trial diet of IDDSI Level 4 Solids (Puree) and thin liquids
(2) Aspiration precautions: Chin tuck with puree, single cup sips of liquids only, slow rate, sit upright
(3) Meds crushed in puree as able
HTN likely 2/2 to Anxiety
improved when calm
IV hydralazine prn
-Goal normotension
EKG: Sinus tachycardia 101 bpm, QTc 448 MS no significant change from January 2014
#History developmental delay since
-brother reports age equivalent 7 years old
#Anxiety
-Paxil resumed
#Hx colon cancer with hemicolectomy 2015
-Patient and mother opted not to do radiation or chemo at that time
#Seasonal allergies
-Continue Flonase
DVT prophylaxis
SCDs
Discussed with patient's brother Jose
I spent a total of 50 minutes with the patient or on the floor. More than 50% of this time involved counseling and coordination of care.
Anticipated Discharge: Within 24 hours
Subjective/Interval History
-
Date of Service: June 30, 2023
Appears well. No new acute issues.
Objective Data
-
Labs:
Laboratory Results
06/30/23
07:09
WBC Pending
Hgb Pending
Hct Pending
Plt Count Pending
Sodium Pending
Potassium Pending
Chloride Pending
Carbon Dioxide Pending
BUN Pending
Creatinine Pending
Glucose Pending
Calcium Pending
Vital Signs:
Vital Signs
Temp Pulse Resp BP Pulse Ox
97.6 F 77 18 127/79 96
06/30/23 04:00 06/30/23 04:00 06/30/23 04:00 06/30/23 04:00 06/30/23 04:00
I&O
06/29/23 06/30/23 07/01/23
06:59 06:59 06:59
Intake Total 600 / 600 960 / 960
Output Total 800 / 800
Balance -200 / -200 960 / 960
[2023-06-30 07:30] VITALS: BP 106/69
[2023-06-30 08:03] LABS: Hematocrit 43.4 % (37.0-47.0); Hemoglobin 14.3 g/dL (12.0-16.0); Mean Corp Hgb Conc. 32.9 g/dL (33.0-37.0); Mean Corpuscular Hgb 30.8 pg (27.0-31.0); Mean Corpuscular Volume 93.3 fL (81.0-99.0); Mean Platelet Volume 10.7 fL (7.4-10.4); Platelet Count 248 10^3/uL (130-400); Red Blood Cell Count 4.65 10^6/uL (4.20-5.40); Red Cell Dist. Width 14.5 % (11.5-14.5); White Blood Cell Count 7.2 10^3/uL (4.8-10.8)
[2023-06-30 08:08] LABS: Blood Urea Nitrogen 25 mg/dl (7-17); Calcium 9.7 mg/dl (8.4-10.2); Carbon Dioxide 33 mmol/L (22-30); Chloride 99 mmol/L (98-107); Estimated Creatinine Clearance 43 ml/min; Glucose 105 mg/dl (70-99); Magnesium 2.1 mg/dl (1.6-2.3); Phosphorus 4.2 mg/dl (2.5-4.5); Potassium 4.4 mmol/L (3.5-5.1); Sodium 139 mmol/L (135-145); eGFR > 60.00
[2023-06-30] MEDS: LOW STRENGTH ASPIRIN 81 MG PO (09:53)
[2023-06-30] MEDS: VITAMIN B-12 1000 MCG PO (09:54)
[2023-06-30] MEDS: PAXIL 10 MG PO (09:54)
[2023-06-30] MEDS: PLAVIX 75 MG PO (09:54)
--- NOTE | 2023-06-30 10:35 | CM ---
Addendum entered by Khadijah Craft 06/30/23 14:35:
IMM reviewed and signed by brother.
Addendum entered by Khadijah Craft 06/30/23 14:31:
Await insurance authorization for acute rehab.
Original Note:
TC to [employer] insurance.
After going thru prompts, message stated they are having technical difficulties and to try back later.
TC to [facility], bed available.
Await insurance authorization.
Plan: [facility] when bed available.
[2023-06-30 11:48] VITALS: BP 126/74
[2023-06-30 15:00] VITALS: BP 108/63
[2023-06-30 19:30] VITALS: BP 122/76
[2023-06-30] MEDS: LIPITOR 40 MG PO (19:30)
[2023-06-30 23:57] VITALS: BP 133/84
[2023-07-01] VITALS (7 sets, daily range): BP systolic 120–146; BP diastolic 68–95; PULSE 92; O2SAT 95
--- NOTE | 2023-07-01 07:28 | W.PN.HOSP.TC ---
Today's Communication/Plan
-
awaiting insurance auth, medically stable for [facility]
Assessment / Plan
Assessment / Plan
Physical Exam
General:�No acute distress
HEENT:�NormoCephalic, PERRLA, [place] Conjunctivae, No Ptosis
Respiratory:�Clear; No Wheezes, Rales or Rhonchi
Cardiac:�S1/S2 and Regular Rhythm; No Murmur, Rub, Gallop or Peripheral Edema
GI:�Soft, Non Tender, Non Distended, Normal Bowel Sounds and No Hepatosplenomegaly
Musculoskeletal:�No Clubbing, No Cyanosis and No Edema
Skin:�Warm and Dry; No Rash or Jaundice
Neuro:�Awake, Alert, conversant, left arm leg weakness 4/5
Psych:�Calm
HPI: 73F brought to the ER by her brother who she lives with, p/w left-sided weakness left facial droop noticed 4 days ago.� Brother reported she c/o headache past 2 days.� Hypertensive on arrival but blood pressure did improve after calming down.�
Failed bedside swallow and chewing aspirin which she spat up.� Brother reported for the past several months she has had a cough every time she eats.� The patient has history of developmental delay. She lived with her mother until she
2018.
PMH developmental delay with age equivalent of 7 years old per brother cognitively, anxiety, HLD, seasonal allergies, colon cancer with hemicolectomy 2016.
#Left facial droop left arm weakness concern for CVA/TIA
Symptoms x 4 days per family
-Consult neurology appreciated
-CT head:�No acute intracranial process.� Moderate diffuse volume loss
-MRI brain appreciated Nonhemorrhagic acute/subacute right pontine infarct.
-Aspirin rectal converted to oral tolerating diet, plavix added as per neuro, 21 days DAPT
-Carotid US appreciated no significant stenosis
-ECHO appreciated preserved EF no acute valve abn's
-PT/OT appreciated Acute Rehab, [facility] eval [facility], insurance authorization pending
Prediabetes
HgA1c 5.8
Hyperlipidemia
LDL goal <70
cont statin
B12 deficiency
supplementation to cont indefinitely as per neuro
�#Acute on chronic dysphagia
�failed bedside swallow coughing when try mary chew aspirin, brother states coughs every time she eats for several months
-Speech swallow eval appreciated with VSE high risk aspiration
(1) Trial diet of IDDSI Level 4 Solids (Puree) and thin liquids
(2) Aspiration precautions: Chin tuck with puree, single cup sips of liquids only, slow rate, sit upright
(3) Meds crushed in puree as able
HTN likely 2/2 to Anxiety
improved when calm
IV hydralazine prn
-Goal normotension
EKG: Sinus tachycardia 101 bpm, QTc 448 MS no significant change from January 2014
#History developmental delay since
-brother reports age equivalent 7 years old
#Anxiety
-Paxil resumed
#Hx colon cancer with hemicolectomy 2015
-Patient and mother opted not to do radiation or chemo at that time
#Seasonal allergies
-Continue Flonase
DVT prophylaxis
SCDs
Discussed with patient's brother Jose
I spent a total of 50 minutes with the patient or on the floor. More than 50% of this time involved counseling and coordination of care.
Anticipated Discharge: Within 24 hours
Subjective/Interval History
-
Date of Service: July 01, 2023
No acute distress. Comfortable
Objective Data
-
Vital Signs:
Vital Signs
Temp Pulse Resp BP Pulse Ox
97.5 F 98 18 120/68 94
07/01/23 03:38 07/01/23 03:38 07/01/23 03:38 07/01/23 03:38 07/01/23 03:38
I&O
06/30/23 07/01/23 07/02/23
06:59 06:59 06:59
Intake Total 960 / 960 720 / 720
Balance 960 / 960 720 / 720
[2023-07-01] MEDS: VITAMIN B-12 1000 MCG PO (10:35)
[2023-07-01] MEDS: PAXIL 10 MG PO (10:35)
[2023-07-01] MEDS: LOW STRENGTH ASPIRIN 81 MG PO (10:35)
[2023-07-01] MEDS: PLAVIX 75 MG PO (10:35)
--- NOTE | 2023-07-01 14:24 | CM ---
TC to [facility] [phone]
Spoke with Elizabeth, faxed information was received on 06/29/23, however case closed due to date mix-up.
Per Elizabeth documentation stated start date 06/27/23.
Elizabeth corrected dates and will process acute rehab request.
Pended reference # [id number].
Director spoke with manager support services from Provider relations at [facility] to see about expediting the rehab request.
[facility] liaison updated.
Plan: [facility] once auth obtained
[2023-07-01] MEDS: LIPITOR 40 MG PO (20:06)
[2023-07-02 04:12] VITALS: BP 142/82
--- NOTE | 2023-07-02 07:42 | W.PN.HOSP.TC ---
Today's Communication/Plan
-
stable, insurance auth remains pending
Assessment / Plan
Assessment / Plan
Physical Exam
General:�No acute distress
HEENT:�NormoCephalic, PERRLA, [place] Conjunctivae, No Ptosis
Respiratory:�Clear; No Wheezes, Rales or Rhonchi
Cardiac:�S1/S2 and Regular Rhythm; No Murmur, Rub, Gallop or Peripheral Edema
GI:�Soft, Non Tender, Non Distended, Normal Bowel Sounds and No Hepatosplenomegaly
Musculoskeletal:�No Clubbing, No Cyanosis and No Edema
Skin:�Warm and Dry; No Rash or Jaundice
Neuro:�Awake, Alert, conversant, left arm leg weakness 4/5
Psych:�Calm
HPI: 73F brought to the ER by her brother who she lives with, p/w left-sided weakness left facial droop noticed 4 days ago.� Brother reported she c/o headache past 2 days.� Hypertensive on arrival but blood pressure did improve after calming down.�
Failed bedside swallow and chewing aspirin which she spat up.� Brother reported for the past several months she has had a cough every time she eats.� The patient has history of developmental delay. She lived with her mother until she
2018.
PMH developmental delay with age equivalent of 7 years old per brother cognitively, anxiety, HLD, seasonal allergies, colon cancer with hemicolectomy 2016.
#Left facial droop left arm weakness concern for CVA/TIA
Symptoms x 4 days per family
-Consult neurology appreciated
-CT head:�No acute intracranial process.� Moderate diffuse volume loss
-MRI brain appreciated Nonhemorrhagic acute/subacute right pontine infarct.
-Aspirin rectal converted to oral tolerating diet, plavix added as per neuro, 21 days DAPT
-Carotid US appreciated no significant stenosis
-ECHO appreciated preserved EF no acute valve abn's
-PT/OT appreciated Acute Rehab, PMR eval appreciated accepted to [facility], insurance authorization pending
Prediabetes
HgA1c 5.8
Hyperlipidemia
LDL goal <70
cont statin
B12 deficiency
supplementation to cont indefinitely as per neuro
�#Acute on chronic dysphagia
�failed bedside swallow coughing when try mary chew aspirin, brother states coughs every time she eats for several months
-Speech swallow eval appreciated with VSE high risk aspiration
(1) Trial diet of IDDSI Level 4 Solids (Puree) and thin liquids
(2) Aspiration precautions: Chin tuck with puree, single cup sips of liquids only, slow rate, sit upright
(3) Meds crushed in puree as able
HTN likely 2/2 to Anxiety
improved when calm
IV hydralazine prn
-Goal normotension
EKG: Sinus tachycardia 101 bpm, QTc 448 MS no significant change from January 2014
#History developmental delay since
-brother reports age equivalent 7 years old
#Anxiety
-Paxil resumed
#Hx colon cancer with hemicolectomy 2015
-Patient and mother opted not to do radiation or chemo at that time
#Seasonal allergies
-Continue Flonase
DVT prophylaxis
SCDs
Discussed with patient's brother Jose
I spent a total of 40 minutes with the patient or on the floor. More than 50% of this time involved counseling and coordination of care.
Anticipated Discharge: 24 - 48 hours
Subjective/Interval History
-
Date of Service: July 02, 2023
no acute distress comfortable
Objective Data
-
Vital Signs:
Vital Signs
Temp Pulse Resp BP Pulse Ox
98.1 F 66 20 142/82 93
07/02/23 04:12 07/02/23 04:12 07/02/23 04:12 07/02/23 04:12 07/02/23 04:12
I&O
07/01/23 07/02/23 07/03/23
06:59 06:59 06:59
Intake Total 720 / 720 960 / 960
Balance 720 / 720 960 / 960
[2023-07-02 07:54] VITALS: BP 126/74
[2023-07-02] MEDS: VITAMIN B-12 1000 MCG PO (09:35)
[2023-07-02] MEDS: PAXIL 10 MG PO (09:35)
[2023-07-02] MEDS: PLAVIX 75 MG PO (09:35)
[2023-07-02] MEDS: LOW STRENGTH ASPIRIN 81 MG PO (09:35)
[2023-07-02 11:27] VITALS: BP 117/74
--- NOTE | 2023-07-02 14:49 | CM ---
CM placed call to [employer] [phone] to check status of authorization [id number]. Per telephone call- unable to process request due to technical difficulties, prompted to call back at a later time. CM TT with [facility], aware of
waiting for auth. CM will continue to follow for discharge planning needs.
Plan; Plan: [facility] once auth obtained
[2023-07-02 15:00] VITALS: BP 131/75; PULSE 98
[2023-07-02 15:35] VITALS: BP 123/70
[2023-07-02] MEDS: LIPITOR 40 MG PO (17:13)
[2023-07-02 21:22] VITALS: BP 125/79
[2023-07-03] VITALS (8 sets, daily range): BP systolic 116–136; BP diastolic 66–88; PULSE 67; O2SAT 93
--- NOTE | 2023-07-03 07:27 | W.PN.HOSP.TC ---
Today's Communication/Plan
-
Discharge remains pending Insurance auth for Acute Rehab
Assessment / Plan
Assessment / Plan
Physical Exam
General:�No acute distress
HEENT:�NormoCephalic, PERRLA, [place] Conjunctivae, No Ptosis
Respiratory:�Clear; No Wheezes, Rales or Rhonchi
Cardiac:�S1/S2 and Regular Rhythm; No Murmur, Rub, Gallop or Peripheral Edema
GI:�Soft, Non Tender, Non Distended, Normal Bowel Sounds and No Hepatosplenomegaly
Musculoskeletal:�No Clubbing, No Cyanosis and No Edema
Skin:�Warm and Dry; No Rash or Jaundice
Neuro:�Awake, Alert, conversant, left arm leg weakness 4/5
Psych:�Calm
HPI: 73F brought to the ER by her brother who she lives with, p/w left-sided weakness left facial droop noticed 4 days ago.� Brother reported she c/o headache past 2 days.� Hypertensive on arrival but blood pressure did improve after calming down.�
Failed bedside swallow and chewing aspirin which she spat up.� Brother reported for the past several months she has had a cough every time she eats.� The patient has history of developmental delay. She lived with her mother until she
2018.
PMH developmental delay with age equivalent of 7 years old per brother cognitively, anxiety, HLD, seasonal allergies, colon cancer with hemicolectomy 2016.
#Left facial droop left arm weakness concern for CVA/TIA
Symptoms x 4 days per family
-Consult neurology appreciated
-CT head:�No acute intracranial process.� Moderate diffuse volume loss
-MRI brain appreciated Nonhemorrhagic acute/subacute right pontine infarct.
-Aspirin rectal converted to oral tolerating diet, plavix added as per neuro, 21 days DAPT
-Carotid US appreciated no significant stenosis
-ECHO appreciated preserved EF no acute valve abn's
-PT/OT appreciated Acute Rehab, PMR eval appreciated accepted to [facility], insurance authorization pending
Prediabetes
HgA1c 5.8
Hyperlipidemia
LDL goal <70
cont statin
B12 deficiency
supplementation to cont indefinitely as per neuro
�#Acute on chronic dysphagia
�failed bedside swallow coughing when try mary chew aspirin, brother states coughs every time she eats for several months
-Speech swallow eval appreciated with VSE high risk aspiration
(1) Trial diet of IDDSI Level 4 Solids (Puree) and thin liquids
(2) Aspiration precautions: Chin tuck with puree, single cup sips of liquids only, slow rate, sit upright
(3) Meds crushed in puree as able
HTN likely 2/2 to Anxiety
improved when calm
IV hydralazine prn
-Goal normotension
EKG: Sinus tachycardia 101 bpm, QTc 448 MS no significant change from January 2014
#History developmental delay since
-brother reports age equivalent 7 years old
#Anxiety
#insomnia
-Paxil resumed
-ativan prn 0.5 mg BID started for anxiety and sleep at bedtime
#Hx colon cancer with hemicolectomy 2015
-Patient and mother opted not to do radiation or chemo at that time
#Seasonal allergies
-Continue Flonase
DVT prophylaxis
SCDs
Discussed with patient and her brother Jose
I spent a total of 40 minutes with the patient or on the floor. More than 50% of this time involved counseling and coordination of care.
Anticipated Discharge: Within 24 hours
Subjective/Interval History
-
Date of Service: July 03, 2023
Patient reporting anxiety poor sleep.
Objective Data
-
Vital Signs:
Vital Signs
Temp Pulse Resp BP Pulse Ox
98.7 F 63 18 129/66 94
07/03/23 04:04 07/03/23 04:04 07/03/23 04:04 07/03/23 04:04 07/03/23 04:04
I&O
07/02/23 07/03/23 07/04/23
06:59 06:59 06:59
Intake Total 960 / 960 740 / 740
Balance 960 / 960 740 / 740
--- NOTE | 2023-07-03 09:29 | CM ---
Patient seen in room, CM discussed awaiting auth approval from insurance. CM will continue to follow for discharge planning needs.
Plan; [facility] once auth approved.
[2023-07-03] MEDS: VITAMIN B-12 1000 MCG PO (10:59)
[2023-07-03] MEDS: LOW STRENGTH ASPIRIN 81 MG PO (10:59)
[2023-07-03] MEDS: PLAVIX 75 MG PO (10:59)
[2023-07-03] MEDS: PAXIL 10 MG PO (11:05)
[2023-07-03] MEDS: LIPITOR 40 MG PO (18:42)
[2023-07-04] MEDS: TYLENOL 650 MG PO ×3 (00:16→20:48)
[2023-07-04 03:14] VITALS: BP 120/70
[2023-07-04 07:00] VITALS: BP 134/74
[2023-07-04] MEDS: PAXIL 10 MG PO (07:43)
[2023-07-04] MEDS: LOW STRENGTH ASPIRIN 81 MG PO (07:43)
[2023-07-04] MEDS: PLAVIX 75 MG PO (07:43)
[2023-07-04] MEDS: VITAMIN B-12 1000 MCG PO (07:44)
--- NOTE | 2023-07-04 10:34 | CM ---
Addendum entered by Khaidjah Craft 07/04/23 17:04:
Spoke with patient brother, he is interested in STR with probable LTC.
[place] is a Level 2 PASRR, [place]
Referrals sent to skilled facilities in the area after review with brother.
Patient will require insurance authorization.
Addendum entered by Khadijah Craft 07/04/23 16:24:
[facility] Re[facility] denied.
Denial lette to be faxed.
Peer to Peer number [id number]
Original Note:
[phone]
Spoke with Elizabeth
Pended reference # [id number], case is still pending. Elizabeth will update case and request for an expedited determination.
[facility] aide updated.
Plan: [facility] once auth obtained
[2023-07-04 15:00] VITALS: BP 128/81
[2023-07-04 15:38] VITALS: BP 126/81; PULSE 89; O2SAT 96
--- NOTE | 2023-07-04 15:50 | PTOTSP ---
Dysphagia Therapy
Patient with known mild oral and moderate-severe pharyngeal dysphagia. See patient care note for details.
Patient with thick yellow/white coating on lingual surface which could not be removed with oral care - which is concerning for possible oral thrush. Notified RN/MD. Recommend oral care 3-5x daily and before/after PO intake with use of suctioning
tooth brush attachment to decrease risk for complications if aspiration occurs.
Recommend:
1. IDDSI Level 4 (Puree), IDDSI Level 0 (Thin Liquids
2. Swallowing precautions: Chin tuck with all PO, single cup sips of liquids only, slow rate, sit upright
3. Meds crushed in puree as able
4. Oral care 3-5x daily, before/after PO with suction toothbrush
5. [facility] to continue to follow
[2023-07-04] MEDS: LIPITOR 40 MG PO (17:15)
--- NOTE | 2023-07-04 17:20 | W.PN.HOSP.TC ---
Today's Communication/Plan
-
await placement
Assessment / Plan
Assessment / Plan
Assessment:
Left facial droop left arm weakness concern for CVA/TIA
Symptoms x 4 days per family
- MRI brain appreciated Nonhemorrhagic acute/subacute right pontine infarct
- Carotid US appreciated no significant stenosis
- appreciate neuro consult
- continue DAPT x 21 days, then ASA alone
- continue statin
- Echo normal
- PT/OT - Acute rehab, if denied, consider SNF
Prediabetes
- HgA1c 5.8
Hyperlipidemia
- statin
B12 deficiency - continue supplementation to cont indefinitely as per neuro
Acute on chronic dysphagia
- continue diet of IDDSI Level 4 Solids (Puree) and thin liquids as per speech
elevated BP likely 2/2 to Anxiety
- improved when calm
- IV hydralazine prn
- goal normotension
History developmental delay since
- brother reports age equivalent 7 years old
Anxiety
insomnia
- Paxil resumed
- Ativan prn 0.5 mg BID started for anxiety and sleep at bedtime
Hx colon cancer with hemicolectomy 2015
- patient and mother opted not to do radiation or chemo at that time
Seasonal allergies
- continue Flonase
DVT prophylaxis: SCDs
Code: Full
Anticipated Discharge: 24 - 48 hours
Subjective/Interval History
-
Date of Service: July 04, 2023
no new complaints
nursing reporting thrush in mouth
Objective Data
-
Vital Signs:
Vital Signs
Temp Pulse Resp BP Pulse Ox
97.3 F 90 18 128/81 95
07/04/23 15:00 07/04/23 15:00 07/04/23 15:00 07/04/23 15:00 07/04/23 15:00
I&O
07/03/23 07/04/23 07/05/23
06:59 06:59 06:59
Intake Total 740 / 740 1080 / 1080
Balance 740 / 740 1080 / 1080
Physical Exam
-
General: No Apparent Distress
HEENT: Normocephalic and Atraumatic
Respiratory: Negative Wheezes or Rales
Cardiac: Regular Rhythm and S1/S2
GI: Soft
Genito-urinary: No Costovertebral Tender
Neuro: AO x 3
Psych: Calm
Data Reviewed
-
Total Time Spent with Patient (in minutes): 45
Labs: Labs Reviewed by me
[2023-07-04 23:28] VITALS: BP 99/56
[2023-07-05 07:00] VITALS: BP 124/80
[2023-07-05] MEDS: PLAVIX 75 MG PO (07:54)
[2023-07-05] MEDS: PAXIL 10 MG PO (07:54)
[2023-07-05] MEDS: VITAMIN B-12 1000 MCG PO (07:54)
[2023-07-05] MEDS: LOW STRENGTH ASPIRIN 81 MG PO (07:54)
--- NOTE | 2023-07-05 12:25 | W.PN.HOSP.TC ---
Today's Communication/Plan
-
SNF pending
needs psych eval for level 2 assessment per CM
Assessment / Plan
Assessment / Plan
Assessment:
Left facial droop left arm weakness concern for CVA/TIA
Symptoms x 4 days per family
- MRI brain appreciated Nonhemorrhagic acute/subacute right pontine infarct
- Carotid US appreciated no significant stenosis
- appreciate neuro consult
- continue DAPT x 21 days, then ASA alone
- continue statin
- Echo normal
- PT/OT - Acute rehab, if denied, consider SNF
Prediabetes
- HgA1c 5.8
Hyperlipidemia
- statin
B12 deficiency - continue supplementation to cont indefinitely as per neuro
Acute on chronic dysphagia
- continue diet of IDDSI Level 4 Solids (Puree) and thin liquids as per speech
elevated BP likely 2/2 to Anxiety
- improved when calm
- IV hydralazine prn
- goal normotension
History developmental delay since
- brother reports age equivalent 7 years old
Anxiety
insomnia
- Paxil resumed
- Ativan prn 0.5 mg BID started for anxiety and sleep at bedtime
Hx colon cancer with hemicolectomy 2015
- patient and mother opted not to do radiation or chemo at that time
Seasonal allergies
- continue Flonase
DVT prophylaxis: SCDs
Code: Full
Anticipated Discharge: Within 24 hours
Subjective/Interval History
-
Date of Service: July 05, 2023
no new complaints
awaiting SNF bed
Objective Data
-
Vital Signs:
Vital Signs
Temp Pulse Resp BP Pulse Ox
98.0 F 84 16 124/80 93
07/05/23 07:00 07/05/23 07:00 07/05/23 07:00 07/05/23 07:00 07/05/23 07:00
I&O
07/04/23 07/05/23 07/06/23
06:59 06:59 06:59
Intake Total 1080 / 1080 960 / 960
Balance 1080 / 1080 960 / 960
Physical Exam
-
General: No Apparent Distress
HEENT: Normocephalic and Atraumatic
Respiratory: Negative Wheezes or Rales
Cardiac: Regular Rhythm and S1/S2
GI: Soft and Nontender
Musculoskeletal: No Edema
Neuro: AO x 3
Hematologic / Lymphatic: No Lymphadenopathy
Psych: Calm
Data Reviewed
-
Total Time Spent with Patient (in minutes): 41
Labs: Labs Reviewed by me
--- NOTE | 2023-07-05 12:53 | CM ---
Addendum entered by Khadijah Craft 07/05/23 14:57:
Spoke with Traci [facility] [employer] [phone], level 2 faxed to [phone].
Await eval to be scheduled.
No psychiatric eval required.
Patient will require [facility] insurance auth.
Original Note:
[facility] willing to [facility], STR, possible LTC.
Patient will need a a level 2 PASRR and will require insurance authorization.
Brother aware and agreeable to [facility].
Per brother he is unable to take patient home.
[facility] NPI# [id number]
Dr Park NPI# [id number]
[2023-07-05 15:00] VITALS: BP 116/73
--- NOTE | 2023-07-05 15:57 | CS.PSYCHR ---
Consult Summary - Psychiatry
-
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 Pt seen with brother, who provided some hx. Pt is not able to
give history, states she is feeling better and wants to go home. Brother reports pt able to do basis ADL's, but requires reminding/prompting. Pt lived with her mother for many years, until mother 6 years ago; since then pt staying with
brother.
Psych Hx: Pt diagnosed with intellectual/developmental disability at age 5 or 6 per brother; was briefly in a treatment program, but pulled out by mother and managed at home per brother's history
Pt on anxiety med Paxil. No other history available.
SH: as above, living with brother. Pt stopped school in first grade per brother, never worked.
MSE: pt alert, oriented to self and -day, sitting up in chair, in no distress. Pt cooperative, though mildly labile, easily redirectable. No signs of psychosis, no agitation. Insight limited; aware she had a 'stroke'
Imp: Unspecified anxiety, stable on existing Paxil
Intellectual disability by history
Rec: continue established Paxil. No other psychiatric intervention indicated
Psychiatry will sign off
[2023-07-05] MEDS: LIPITOR 40 MG PO (17:34)
[2023-07-05 22:53] VITALS: BP 119/69
[2023-07-06 07:00] VITALS: BP 126/73
[2023-07-06] MEDS: VITAMIN B-12 1000 MCG PO (09:08)
[2023-07-06] MEDS: PAXIL 10 MG PO (09:09)
[2023-07-06] MEDS: LOW STRENGTH ASPIRIN 81 MG PO (09:09)
[2023-07-06] MEDS: PLAVIX 75 MG PO (09:09)
--- NOTE | 2023-07-06 09:53 | W.PN.HOSP.TC ---
Today's Communication/Plan
-
SNF pending
for level 2 assessment per CM
Assessment / Plan
Assessment / Plan
Assessment:
Left facial droop left arm weakness concern for CVA/TIA
Symptoms x 4 days per family
- MRI brain appreciated Nonhemorrhagic acute/subacute right pontine infarct
- Carotid US appreciated no significant stenosis
- appreciate neuro consult
- continue DAPT x 21 days, then ASA alone
- continue statin
- Echo normal
- PT/OT - Acute rehab was denied. Family now pursuing SNF.
Prediabetes
- HgA1c 5.8
Hyperlipidemia
- statin
B12 deficiency - continue supplementation to cont indefinitely as per neuro
Acute on chronic dysphagia
- continue diet of IDDSI Level 4 Solids (Puree) and thin liquids as per speech
elevated BP likely 2/2 to Anxiety
- improved when calm
- IV hydralazine prn
- goal normotension
History developmental delay since
- brother reports age equivalent 6 years old
Anxiety
insomnia
- Paxil resumed
- Ativan prn 0.5 mg BID started for anxiety and sleep at bedtime
Hx colon cancer with hemicolectomy 2015
- patient and mother opted not to do radiation or chemo at that time
Seasonal allergies
- continue Flonase
DVT prophylaxis: SCDs
Code: Full
Anticipated Discharge: 24 - 48 hours
Subjective/Interval History
-
Date of Service: July 06, 2023
no new complaints
awaiting SNF bed
Objective Data
-
Vital Signs:
Vital Signs
Temp Pulse Resp BP Pulse Ox
98.0 F 83 20 119/69 95
07/05/23 22:53 07/05/23 22:53 07/05/23 22:53 07/05/23 22:53 07/05/23 22:53
I&O
07/05/23 07/06/23 07/07/23
06:59 06:59 06:59
Intake Total 960 / 960 630 / 630
Balance 960 / 960 630 / 630
Physical Exam
-
General: No Apparent Distress
HEENT: Normocephalic and Atraumatic
Respiratory: Negative Wheezes
Cardiac: Regular Rhythm and S1/S2
GI: Soft
Genito-urinary: No Costovertebral Tender
Musculoskeletal: No Edema
Neuro: AO x 3
Psych: Calm
Data Reviewed
-
Total Time Spent with Patient (in minutes): 41
Labs: Labs Reviewed by me
[2023-07-06 15:00] VITALS: BP 107/68
--- NOTE | 2023-07-06 15:17 | CM ---
Patient seen bedside.
Tanner from [facility] in to see patient for level 2 eval.
Will initiate skilled rehab [facility] authorization [facility] once clearance obtained.
Crystal De La Cruz NPI# [id number]
Dr Park NPI# [id number]
Plan: skilled rehab once insurance auth obtained
[2023-07-06] MEDS: LIPITOR 40 MG PO (17:03)
[2023-07-06 23:24] VITALS: BP 117/68
[2023-07-07 07:29] VITALS: BP 115/63
[2023-07-07] MEDS: PLAVIX 75 MG PO (09:03)
[2023-07-07] MEDS: PAXIL 10 MG PO (09:03)
[2023-07-07] MEDS: VITAMIN B-12 1000 MCG PO (09:03)
[2023-07-07] MEDS: LOW STRENGTH ASPIRIN 81 MG PO (09:03)
--- NOTE | 2023-07-07 09:06 | CM ---
Addendum entered by Khadijah Craft 07/07/23 16:13:
Case entered via [employer] portal for skilled rehab.
[employer] portal stating [facility] not in Network, Per Jennifer/[facility] they are in network.
Pended reference # [id number] (may have duplicates)
Email to Tamar at [employer] sent by CN director.
Unable to speak with anyone from [employer].
Addendum entered by Khadijah Craft 07/07/23 15:12:
Again attempted to initiate authorization, [employer] voice message still states they are experiencing technichal difficulty.
Addendum entered by Khadijah Craft 07/07/23 14:44:
Again attempted [employer] authorization, company phone message stating technical difficulties and unable to get a pended authorization.
Faxed clinicals and facility name/NPI#s to in an attempt to get an authorization initiated.
Await Level 2 clearance.
Original Note:
Attempted to initiate [employer] auth.
TC to [phone] followed prompts, message stating they are experiencing technical difficulties.
Will try back later.
Await state review and letter re level 2 PASRR.
--- NOTE | 2023-07-07 10:20 | W.PN.HOSP.TC ---
Today's Communication/Plan
-
Medically stable for SNF pending placement. State/County assessments ongoing. CM aware.
Assessment / Plan
Assessment / Plan
Assessment:
Left facial droop left arm weakness concern for CVA/TIA
Symptoms x 4 days per family
- MRI brain appreciated Nonhemorrhagic acute/subacute right pontine infarct
- Carotid US appreciated no significant stenosis
- appreciate neuro consult
- continue DAPT x 21 days, then ASA alone
- continue statin
- Echo normal
- PT/OT - Acute rehab was denied. Family now pursuing SNF.
Prediabetes
- HgA1c 5.8
Hyperlipidemia
- statin
B12 deficiency - continue supplementation to cont indefinitely as per neuro
Acute on chronic dysphagia
- continue diet of IDDSI Level 4 Solids (Puree) and thin liquids as per speech
elevated BP likely 2/2 to Anxiety
- improved when calm
- IV hydralazine prn
- goal normotension
History developmental delay since
- brother reports age equivalent 7 years old
Anxiety
insomnia
- Paxil resumed
- Ativan prn 0.5 mg BID started for anxiety and sleep at bedtime
Hx colon cancer with hemicolectomy 2015
- patient and mother opted not to do radiation or chemo at that time
Seasonal allergies
- continue Flonase
DVT prophylaxis: SCDs
Code: Full
Dispo: Medically stable for SNF pending placement. State/County assessments ongoing. CM aware.
Anticipated Discharge: > 48 hours
Subjective/Interval History
-
Date of Service: July 07, 2023
no new complaints
tearful over dispo process
Objective Data
-
Vital Signs:
Vital Signs
Temp Pulse Resp BP Pulse Ox
98.4 F 61 16 115/63 95
07/07/23 07:29 07/07/23 07:29 07/07/23 07:29 07/07/23 07:29 07/07/23 07:29
I&O
07/06/23 07/07/23 07/08/23
06:59 06:59 06:59
Intake Total 630 / 630 1200 / 1200
Balance 630 / 630 1200 / 1200
Physical Exam
-
General: No Apparent Distress
HEENT: Normocephalic and Atraumatic
Respiratory: Negative Wheezes or Rales
Cardiac: Regular Rhythm and S1/S2
GI: Soft
Genito-urinary: No Costovertebral Tender
Neuro: AO x 3
Hematologic / Lymphatic: No Lymphadenopathy
Psych: Calm
Data Reviewed
-
Total Time Spent with Patient (in minutes): 45
Labs: Labs Reviewed by me
[2023-07-07 15:36] VITALS: BP 123/56
[2023-07-07] MEDS: LIPITOR 40 MG PO (16:52)
[2023-07-07 23:12] VITALS: BP 118/70
[2023-07-08 07:00] VITALS: BP 115/69
[2023-07-08] MEDS: PLAVIX 75 MG PO (09:09)
[2023-07-08] MEDS: VITAMIN B-12 1000 MCG PO (09:09)
[2023-07-08] MEDS: LOW STRENGTH ASPIRIN 81 MG PO (09:09)
[2023-07-08] MEDS: PAXIL 10 MG PO (09:09)
--- NOTE | 2023-07-08 09:26 | W.PN.HOSP.TC ---
Today's Communication/Plan
-
Medically stable for SNF pending placement and auth. State/County assessments ongoing. CM aware.
Assessment / Plan
Assessment / Plan
Assessment:
Left facial droop left arm weakness concern for CVA/TIA
Symptoms x 4 days per family
- MRI brain appreciated Nonhemorrhagic acute/subacute right pontine infarct
- Carotid US appreciated no significant stenosis
- appreciate neuro consult
- continue DAPT x until 07/19, then ASA alone
- continue statin
- Echo normal
- PT/OT - Acute rehab was denied. Family now pursuing SNF.
Prediabetes
- HgA1c 5.8
Hyperlipidemia
- statin
B12 deficiency - continue supplementation to cont indefinitely as per neuro
Acute on chronic dysphagia
- continue diet of IDDSI Level 4 Solids (Puree) and thin liquids as per speech
elevated BP likely 2/2 to Anxiety
- improved when calm
- IV hydralazine prn
- goal normotension
History developmental delay since
- brother reports age equivalent 7 years old
Anxiety
insomnia
- Paxil resumed
- Ativan prn 0.5 mg BID started for anxiety and sleep at bedtime
Hx colon cancer with hemicolectomy 2015
- patient and mother opted not to do radiation or chemo at that time
Seasonal allergies
- continue Flonase
DVT prophylaxis: SCDs
Code: Full
Dispo: Medically stable for SNF pending placement and auth. State/County assessments ongoing. CM aware.
Anticipated Discharge: > 48 hours
Subjective/Interval History
-
Date of Service: July 08, 2023
no overnight events
remains pending placement
Objective Data
-
Vital Signs:
Vital Signs
Temp Pulse Resp BP Pulse Ox
97.7 F 60 18 115/69 95
07/08/23 07:00 07/08/23 07:00 07/08/23 07:00 07/08/23 07:00 07/08/23 07:00
I&O
07/07/23 07/08/23 07/09/23
06:59 06:59 06:59
Intake Total 1200 / 1200 480 / 480
Balance 1200 / 1200 480 / 480
Physical Exam
-
General: No Apparent Distress
HEENT: Normocephalic
Respiratory: Negative Wheezes
Cardiac: Regular Rhythm and S1/S2
GI: Soft
Genito-urinary: No Costovertebral Tender
Neuro: AO x 3
Psych: Calm
Data Reviewed
-
Total Time Spent with Patient (in minutes): 45
Labs: Labs Reviewed by me
[2023-07-08 10:04] LABS: Hematocrit 44.7 % (37.0-47.0); Hemoglobin 14.8 g/dL (12.0-16.0); Mean Corp Hgb Conc. 33.1 g/dL (33.0-37.0); Mean Corpuscular Hgb 30.5 pg (27.0-31.0); Mean Platelet Volume 10.1 fL (7.4-10.4); Platelet Count 294 10^3/uL (130-400); Red Blood Cell Count 4.86 10^6/uL (4.20-5.40); Red Cell Dist. Width 13.9 % (11.5-14.5); White Blood Cell Count 6.4 10^3/uL (4.8-10.8)
[2023-07-08 10:18] LABS: Blood Urea Nitrogen 20 mg/dl (7-17); Calcium 9.5 mg/dl (8.4-10.2); Carbon Dioxide 30 mmol/L (22-30); Chloride 101 mmol/L (98-107); Estimated Creatinine Clearance 43 ml/min; Glucose 107 mg/dl (70-99); Potassium 4.4 mmol/L (3.5-5.1); Sodium 137 mmol/L (135-145); eGFR > 60.00
--- NOTE | 2023-07-08 11:22 | CM ---
Addendum entered by Cecy Burch 07/08/23 16:41:
CM spoke with MILLA, emailed letter regarding level 2 to CM. CM updated Jennifer at [facility] along with Hospitalist, plan to discharge tomorrow to [facility].
Addendum entered by Cecy Burch 07/08/23 13:01:
CM left voicemail for MILLA in regards to auth approval for SNF and obtaining letter regarding level 2, requested return call. CM spoke with Jennifer from [facility] to provide update.
Addendum entered by Cecy Burch 07/08/23 11:44:
CM received call from Tristen at [facility], auth approval #[id number] for SNF, 07/08-07/18 with next review on 07/18- call [phone] for review. CARLOS will fax updated clinicals to [phone].
Original Note:
Patient seen bedside, reports her brother Gamaliel will be coming in to visit her later on. CM received call from Tristen from [facility] in regards to therapy notes for patient. CM provided updated PT/OT to Tristen for SNF authorization. CM provided direct
number to Tristen along with fax number, confirmed SNF accepting facility is [facility]. Tristen will call CM back with auth status. CM will continue to follow for discharge planning needs.
Plan; awaiting auth for SNF, await state review and letter re level 2 PASRR.
[2023-07-08 15:00] VITALS: BP 123/72
[2023-07-08] MEDS: LIPITOR 40 MG PO (17:02)
[2023-07-08 23:23] VITALS: BP 108/69
[2023-07-09 07:00] VITALS: BP 120/76
[2023-07-09] MEDS: VITAMIN B-12 1000 MCG PO (07:30)
[2023-07-09] MEDS: PAXIL 10 MG PO (07:31)
[2023-07-09] MEDS: PLAVIX 75 MG PO (07:31)
[2023-07-09] MEDS: LOW STRENGTH ASPIRIN 81 MG PO (07:31)
[2023-07-09 09:16] VITALS: BP 120/76
--- NOTE | 2023-07-09 10:03 | W.PN.HOSP.TC ---
Today's Communication/Plan
-
dc to SNF
Assessment / Plan
Assessment / Plan
Assessment:
Left facial droop left arm weakness concern for CVA/TIA
Symptoms x 4 days per family
- MRI brain appreciated Nonhemorrhagic acute/subacute right pontine infarct
- Carotid US appreciated no significant stenosis
- appreciate neuro consult
- continue DAPT x until 07/19, then ASA alone
- continue statin
- Echo normal
- PT/OT - Acute rehab was denied. going to SNF today.
Prediabetes
- HgA1c 5.8
Hyperlipidemia
- statin
B12 deficiency - continue supplementation to cont indefinitely as per neuro
Acute on chronic dysphagia
- continue diet of IDDSI Level 4 Solids (Puree) and thin liquids as per speech
elevated BP likely 2/2 to Anxiety
- improved when calm
- IV hydralazine prn
- goal normotension
History developmental delay since
- brother reports age equivalent 7 years old
Anxiety
insomnia
- Paxil resumed
- Ativan prn 0.5 mg BID started for anxiety and sleep at bedtime
Hx colon cancer with hemicolectomy 2015
- patient and mother opted not to do radiation or chemo at that time
Seasonal allergies
- continue Flonase
DVT prophylaxis: SCDs
Code: Full
Dispo: going to SNF today.
Anticipated Discharge: Today
Subjective/Interval History
-
Date of Service: July 09, 2023
no overnight events
for DC to SNF today
Objective Data
-
Vital Signs:
Vital Signs
Temp Pulse Resp BP Pulse Ox
97.9 F 65 18 120/76 95
07/09/23 09:16 07/09/23 09:16 07/09/23 09:16 07/09/23 09:16 07/09/23 09:16
I&O
07/08/23 07/09/23 07/10/23
06:59 06:59 06:59
Intake Total 480 / 480 1200 / 1200
Balance 480 / 480 1200 / 1200
Physical Exam
-
General: No Apparent Distress
HEENT: Normocephalic and Atraumatic
Respiratory: Negative Wheezes or Rales
Cardiac: Regular Rhythm and S1/S2
GI: Soft
Genito-urinary: No Costovertebral Tender
Neuro: AO x 3
Psych: Calm
Data Reviewed
-
Total Time Spent with Patient (in minutes): 45
Labs: Labs Reviewed by me
--- NOTE | 2023-07-09 10:20 | W.DS.TRANS ---
DC Summary - [employer]
-
Discharge Instructions:
Discharge Diagnosis/Procedures R pontine CVA
Diet Other diet
Additional Diets IDDSI 4 pureed
Activity As tolerated
Other Services PT,OT
Instructions:
Stand-Alone Forms:
Changes to Home Medications: No
Discharge Medications:
DC Medications w/original date entered in [employer]
acetaminophen 500 mg tablet (Tylenol Extra Strength) 1,000 mg PO DAILYPRN PRN mild pain 06/26/23
benzonatate 100 mg capsule 100 mg PO QPM Cough 06/26/23
fluticasone propionate 50 mcg/actuation nasal spray,suspension 1 spray intranasal DAILY Allergies 06/26/23
ibuprofen 1 dose PO DAILYPRN PRN mild pain 06/26/23
paroxetine HCl 10 mg/5 mL oral suspension 10 mg PO DAILY Mental Health/Anxiety 06/26/23
aspirin 81 mg chewable tablet (Children's Aspirin) 81 mg PO DAILY #100 tabs 07/09/23
atorvastatin 40 mg tablet 40 mg PO QPM #30 tabs 07/09/23
clopidogrel 75 mg tablet 75 mg PO DAILY #10 tabs 07/09/23
cyanocobalamin (vitamin B-12) 1,000 mcg tablet 1,000 mcg PO DAILY #100 tabs 07/09/23
Home Medication Changes
Pending Results: No
Total time spent discharging patient (in min): 45
--- NOTE | 2023-07-09 11:12 | CM ---
Addendum entered by Khadijah Craft 07/09/23 11:55:
Level 2 determination faxed to [phone] and copy sent with patient.
Original Note:
Patient for d/c to [facility] today.
Brother will drive patient.
Plan: [facility] rehab
Report# [phone]
== END 2023-07-09 13:40 | DRG 66 ==
LOC: 4 WEST ACU 15:46
PROVIDERS: Clinical Nurse Specialist Family Health; Emergency Medicine; Internal Medicine; ADMITTING PHYSICIAN Internal Medicine; CONSULT PHYSICIAN Physical Medicine & Rehabilitation; CONSULT PHYSICIAN Psychiatry & Neurology Neurology; EMERGENCY PHYSICIAN Emergency Medicine; FAMILY PHYSICIAN Internal Medicine; OTHER PHYSICIAN Psychiatry & Neurology Psychiatry
DX: I63.29 Cerebral infarction due to unspecified occlusion or stenosis of other precerebral arteries (principal); E78.5 Hyperlipidemia, unspecified; E53.8 Deficiency of other specified B group vitamins; R13.10 Dysphagia, unspecified; F41.9 Anxiety disorder, unspecified; F81.9 Developmental disorder of scholastic skills, unspecified; G47.00 Insomnia, unspecified; F80.2 Mixed receptive-expressive language disorder; Z85.038 Personal history of other malignant neoplasm of large intestine; Z79.82 Long term (current) use of aspirin
CPT/HCPCS: 70450; 70544; 70553; 74230; 80048; 80053; 80061; 82607; 83036; 83735; 84100; 84443; 85025; 85027; 85610; 85730; 86803; 92523; 92526; 92610; 92611; 93005; 93306; 93880; 97110; 97116; 97162; 97167; 97530; 97535; 99291; A9575